=== PATIENT | male | born 1950 | race Caucasian/White ===

== ENCOUNTER 2017-03-08 10:14 | Inpatient (IN) | payer OTHER, MEDICAID ==
[~2017-03-08] VITALS: Ht 182.9 cm; Wt 92.7 kg
[~2017-03-08 10:14] MED LIST: ABIL400I IM; ALPH0.156 OS; ASPI1TAB PO; ATOR80TA59 PO; CALTTAB11 PO; CLEO150C PO; D 202000 PO; GLIP10TA6 PO; GLIP1TAB51 PO; ISOS30TA4 PO; LIDO1OIN2 TOP; LIDO5TD TD; LISI-542 PO; METF10004 PO; METO1TAB33 PO; RISATAB3 PO; TRAZO50TA PO; TYLE325C PO; XALA0.007 OU
[2017-03-08] MEDS ORDERED: VITA2000 PO (10:44)
[2017-03-08] MEDS ORDERED: HYDR1CRE2 EXT (10:44)
[2017-03-08] MEDS ORDERED: LISI10TA4 PO (10:44)
[2017-03-08] MEDS ORDERED: ALPHAGAN 0.1% OU (10:44)
[2017-03-08 11:41] LABS: MEAN CORPUSCULAR HEMOGLOBIN 31.6 pg (27.0-33.0); MEAN CORPUSCULAR HGB CONC 34.2 g/dl (32.0-36.5); MEAN CORPUSCULAR VOLUME 92.4 fl (80.0-96.0); RED CELL DISTRIBUTION WIDTH 13.7 % (11.5-14.5); WHITE BLOOD COUNT 11.9 K/mm3 (4.0-10.0)
[2017-03-08 12:00] LABS: METHADONE URINE NEGATIVE (NEGATIVE)
[2017-03-08 12:12] LABS: ALBUMIN 3.8 GM/DL (3.2-5.2); ALBUMIN/GLOBULIN RATIO 1.09 (1.00-1.93); ALKALINE PHOSPHATASE 105 U/L (45-117); ALT/SGPT 34 U/L (12-78); ANION GAP 6 MEQ/L (8-16); AST/SGOT 10 U/L (15-37); BILIRUBIN,DIRECT < 0.1 MG/DL (0.0-0.2); BILIRUBIN,TOTAL 0.3 MG/DL (0.2-1.0); BLOOD UREA NITROGEN 15 MG/DL (7-18); CARBON DIOXIDE LEVEL 26 MEQ/L (21-32); CHLORIDE LEVEL 109 MEQ/L (98-107); GLOMERULAR FILTRATION RATE > 60.0 (>49); GLUCOSE, FASTING 83 MG/DL (80-110); POTASSIUM SERUM 4.5 MEQ/L (3.5-5.1); SODIUM LEVEL 141 MEQ/L (136-145); TOTAL PROTEIN 7.3 GM/DL (6.4-8.2)
--- NOTE | 2017-03-08 14:00 | REP ---
Maxillofacial CT without IV contrast: There is preseptal soft tissue edema on the right compatible with cellulitis. There is no focal fluid collection to suggest abscess or hematoma. There is no intraorbital inflammation or edema. There is a left ocular band and there is intraocular silicone in the left ocular globe, likely treatment for retinal detachment. The paranasal sinuses are clear. There is nasal septal deviation to the right. The mastoid air cells are clear. The skull base and sella turcica are unremarkable. Impression: Preseptal soft tissue edema on the right, compatible with cellulitis . No intraorbital inflammation or edema. No focal fluid collection to suggest abscess or hematoma. Findings in the right ocular globe as described. Signed by Kee Mojica MD 03/08/2017 01:51 P
[2017-03-08] MEDS ORDERED: cefTRIAXone SOD 2 GM in D5W MINI-BAG PLUS 50 ML IV ONE (14:30)
[2017-03-08] MEDS ORDERED: ERYTHROMYCIN OPHTH OINT OD ONE (15:00)
[2017-03-08] MEDS ORDERED: PREDOPD OS (16:29)
[2017-03-08] MEDS ORDERED: KETO5OPD OS (16:29)
[2017-03-08] MEDS ORDERED: BRIM1OPD OS (16:29)
[2017-03-08] MEDS ORDERED: MOM 30ML SUSPENSION UDC PO PRN (18:00)
[2017-03-08] MEDS ORDERED: MAALOX 30 ML SUSP *UDC PO PRN (18:00)
[2017-03-08] MEDS ORDERED: LORazepam 1 MG TAB PO PRN (18:00)
[2017-03-08] MEDS ORDERED: traZODone 50 MG TAB PO PRN (18:00)
[2017-03-08] MEDS ORDERED: ACETAMINOPHEN TAB 650MG DOSE (2X325MG) PO PRN (18:00)
[2017-03-08 20:00] VITALS: BP 139/87
[2017-03-08] MEDS: ARIPiprazole 15 MG TAB (AbiLIFY) PO SCH (21:00)
--- NOTE | 2017-03-09 09:45 | HPEPDOC ---
Medical History and Physical Date of Admission Mar 08, 2017 at 17:59 History and Physical PCP: Chanda Horner NP ATTENDING: Dr. Josue Bolton HPI: 66yoM admitted to [facility] for schizoaffective disorder, being medically examined today. Patient is agitated with providing any history today, declines to answer many questions. Cannot provide any additional history regarding bilateral eye erythema. As per ED record was consulted in the emergency department. The patient received erythromycin ointment and IV Rocephin in the emergency department. History is taken from the chart. Denies any fevers, chills, weakness, fatigue, BEATTY, CP, SOB, cough, palpitations, abdominal pain, N/V/D or changes in bowel or bladder habits. PMHx: Hypertension NIDDM CAD/IWMI 1985. Referred for cardiac catheterization 08/01 patient refused at that time. COPD Glaucoma Hyperlipidemia Degenerative disc disease BPH Erectile dysfunction Eczema Tobacco use Anxiety Depression Legal blindness Macular degeneration PSHX: CABG 3 2000 cataract bilaterally Detached retina repair bilaterally SOCHX: Resides in: [facility] Marital Status: Single Employment: Disabled Tobacco use: Smoker ETOH: Denies Illicit Drugs: Denies IV Drug Use: Denies Tattoos done unprofessionally: Denies FAMHX: Mother: , CHF, breast cancer Father: , [place] Siblings: One brother Alive, well ROS: As noted in HPI, otherwise 11pt ROS of systems reviewed and unremarkable. PE: GEN: 66yoM, appears stated age. Well-nourished, well developed. No acute distress. Alert and oriented x 3. Becomes agitated with any history questions, tangential. HEENT: Normocephalic, atraumatic. B/L erythema surrounding eyes and extends periorbital B/L with yellowish drainage and edema noted. Nose midline. Nasal turbinates without bogginess. EACs both patent BL. TMs both visualized and trujillo with good cone of light, no bulging or erythema. No facial asymmetry. Moist mucous membranes. Pharynx pink and moist. Neck supple, trachea midline. No lymphadenopathy or thyromegaly appreciated. CHEST: Regular rate and rhythm, +S1, +S2 LUNGS: Clear to auscultation bilaterally. No wheezes, rales, or rhonchi. Breathing appears symmetric and easy. Patient is speaking in full sentences. No accessory muscle use. ABD: Round, soft, non-tender, non-distended. +Bowel sounds throughout. No rebound or guarding. No costovertebral angle tenderness. EXT: Pulses 2+ bilaterally dorsalis pedis and radial. No lower extremity edema appreciated. SKIN: [place], dry, warm. Capillary refill <2sec. scaling and erythema as noted on the fingers bilaterally. Patient states this is related to his eczema, chronic. NEURO: Alert and oriented x 3. Cranial nerves III-XII are intact. No focal deficits appreciated. EKG: pending. A&P: 66yoM admitted to [facility] for schizoaffective disorder 1. Psych. Plan per Psychiatry. Obtain baseline EKG to assure the safety of psychiatric medications as they can prolong the QT interval. 2. Nicotine dependence. Patch available. 3. HTN. Continue lisinopril with hold parameters. 4. NIDDM. Consistent carbohydrate diet. Hold metformin 1000 mg by mouth twice a day. Hold Glipizide. Blood sugar on admission noted to be 83. SSI. 5. HLD. Continue Lipitor 80 mg daily. 6. CAD/CABG. Patient with no chest discomfort reported at this time. Continue metoprolol 100 mg twice a day with hold parameters. Continue isosorbide mononitrate 30 mg daily. Continue aspirin 81 mg daily. 7. Legal Blindness. Supportive care. 8. B/L conjunctivitis/periorbital cellulitis. Patient received IV Rocephin 2 g 1 in ED 03/08/17. Ilotycin B/L eyes. Request CT maxillofacial to further asses. Update CBCd/CMP/ESR. Discussed with Dr Bolton, add po Omnicef 300mg BID x 10 days. 9. Eczema. Apply [place] 0.2% 3 times a day as needed. 10. Follow up with PCP on discharge. 11. Staff members Kerline RICHARDS and Angel present throughout exam. Vital Signs Vital Signs Date Time Temp Pulse Resp B/P (MAP) Pulse Ox O2 Delivery O2 Flow Rate FiO2 03/08/17 20:00 98.7 63 20 139/87 95 Room Air Laboratory Data Labs 24H Laboratory Tests 2 03/08/17 11:27: Anion Gap 6L, Glomerular Filtration Rate > 60.0, Calcium Level 9.0, Aspartate Amino Transf (AST/SGOT) 10L, Alanine Aminotransferase (ALT/SGPT) 34, Alkaline Phosphatase 105, Total Bilirubin 0.3, Direct Bilirubin < 0.1, Total Protein 7.3 , Albumin 3.8, Albumin/Globulin Ratio 1.09, Thyroid Stimulating Hormone (TSH) 1.780, Salicylates Level 2.6L, Urine Amphetamines Screen NEGATIVE, Urine Benzodiazepines Screen NEGATIVE, Urine Opiates Screen NEGATIVE, Urine Methadone Screen NEGATIVE, Acetaminophen Level < 2.0L, Urine Barbiturates Screen NEGATIVE , Urine Phencyclidine Screen NEGATIVE, Urine Cocaine Metabolite Screen NEGATIVE , Urine Cannabinoids Screen NEGATIVE, Ethyl Alcohol Level < 0.003 CBC/BMP Laboratory Tests 03/08/17 11:27 Red Blood Count 4.90, Mean Corpuscular Volume 92.4, Mean Corpuscular Hemoglobin 31.6, Mean Corpuscular Hemoglobin Concent 34.2, Red Cell Distribution Width 13.7 Home Medications Scheduled (Caltrate 600+D 600-800 mg-Unit) 1 Tab Tab, 1 TAB PO DAILY for Supplement Aspirin (Aspirin 81) 81 Mg Tab, 81 MG PO QHS for Heart Prophylaxis Atorvastatin Calcium (Atorvastatin Calcium) 80 Mg Tab, 80 MG PO QHS for High Cholesterol Brimonidine Tartrate 0.1% (Alphagan P) 100 Drop/5 Ml Soln, 1 DROP OS BID Cholecalciferol (Vitamin D3) 2,000 Unit Cap, 2,000 UNIT PO QHS Glipizide (Glipizide ER) 10 Mg Tab, 10 MG PO QHS for DIABETES Isosorbide Mononitrate (Isosorbide Mononitrate ER) 30 Mg Tab, 30 MG PO QHS for vasodilator Ketorolac Tromethamine (Ketorolac Tromethamine) 0.5 % Sudha, 1 DROP OS QID Lisinopril (Lisinopril) 10 Mg Tab, 10 MG PO QHS Metformin Hydrochloride (Metformin HCl) 1,000 Mg Tab, 1,000 MG PO BID for Diabetes Metoprolol Succinate (Metoprolol Succinate ER) 100 Mg Tab, 100 MG PO BID Prednisolone Acetate (Prednisolone Acetate 1% Opth Susp) 100 Drop/5 Ml Susp, 1 DROP OS QID Allergies Coded Allergies: Fluphenazine (Verified Allergy, Unknown, 05/20/16) Haloperidol (Unverified Allergy, Unknown, 05/20/16) Gladys Membreno Mar 09, 2017 09:45
[2017-03-09] MEDS ORDERED: GLUCOSE 4 GM CHEW TABLET PO PRN (10:30)
[2017-03-09] MEDS ORDERED: GLUCAGON FOR INJ 1 MG VIAL (J1610) SC PRN (10:30)
[2017-03-09] MEDS ORDERED: DEXTROSE 50% 50 ML SYRINGE IV PRN (10:30)
[2017-03-09] MEDS ORDERED: ISOVUE-370 76% 100ML VIAL (Q9967) As Ordered ONE (10:46)
[2017-03-09 10:59] LABS: BASO # 0.1 K/mm3 (0.0-0.2); BASO % 0.8 % (0.0-1.0); EOS # 0.3 K/mm3 (0.0-0.50); EOS % 3.5 % (0.0-3.0); LARGE UNSTAINED CELL # 0.1 K/mm3 (0.0-0.4); LARGE UNSTAINED CELL % 0.9 % (0.0-4.0); LYMPH # 1.2 K/mm3 (1.5-4.5); MEAN CORPUSCULAR HEMOGLOBIN 31.6 pg (27.0-33.0); MEAN CORPUSCULAR HGB CONC 33.7 g/dl (32.0-36.5); MEAN CORPUSCULAR VOLUME 93.9 fl (80.0-96.0); MONO # 0.5 K/mm3 (0.0-0.8); MONO % 5.7 % (0.0-5.0); NEUTROPHILS # 7.1 K/mm3 (1.8-7.7); PLATELET COUNT, AUTOMATED 147 k/mm3 (150-450); RED CELL DISTRIBUTION WIDTH 13.5 % (11.5-14.5); WHITE BLOOD COUNT 9.3 K/mm3 (4.0-10.0)
[2017-03-09 11:23] LABS: ALBUMIN 3.5 GM/DL (3.2-5.2); ALBUMIN/GLOBULIN RATIO 0.95 (1.00-1.93); ALKALINE PHOSPHATASE 102 U/L (45-117); ALT/SGPT 32 U/L (12-78); ANION GAP 5 MEQ/L (8-16); AST/SGOT 11 U/L (15-37); BILIRUBIN,TOTAL 0.4 MG/DL (0.2-1.0); BLOOD UREA NITROGEN 15 MG/DL (7-18); CARBON DIOXIDE LEVEL 31 MEQ/L (21-32); CHLORIDE LEVEL 105 MEQ/L (98-107); CREATININE FOR GFR 0.94 MG/DL (0.70-1.30); GLOMERULAR FILTRATION RATE > 60.0 (>49); GLUCOSE, FASTING 113 MG/DL (80-110); POTASSIUM SERUM 4.5 MEQ/L (3.5-5.1); SODIUM LEVEL 141 MEQ/L (136-145); TOTAL PROTEIN 7.2 GM/DL (6.4-8.2)
[2017-03-09] MEDS: HumaLOG INSULIN (NovoLOG) PER UNIT SC SCH ×3 (11:33→20:14)
[2017-03-09] MEDS: METOPROLOL SUCC (TopROL XL) 100MG *XL* TAB PO SCH ×2 (11:34→20:11)
--- NOTE | 2017-03-09 11:43 | REP ---
MAXILLOFACIAL CT WITH CONTRAST: HISTORY: Cellulitis. CONTRAST: Isovue 370, 75 mL. COMPARISON: 03/08/2017. Minimal mucosal thickening is present in the ethmoid, maxillary, sphenoid and frontal sinuses. Mucosal thickening involves the ostiomeatal units. The middle and inferior nasal turbinates are partially paradoxical. There is yunier bullosa of the left middle nasal turbinate. There is mild deviation of the nasal septum to the right. A spur is present arising from the right side of the nasal septum. The spur abuts the right middle and inferior nasal turbinates. The cribriform plate, medial bautista of the orbits and optic canals are intact. The carotid canals form a segment of the posterolateral bautista of the sphenoid sinus. The right sphenoid sinus septum inserts into the right internal carotid canal wall. The patient is status post left retinal banding. Intraocular silicone is present in the left globe. Right preseptal soft tissue swelling is present. IMPRESSION: 1. Sinus mucosal thickening as described above. 2. Right preseptal soft tissue swelling unchanged compared to the previous study. Signed by Zay Ashley MD 03/09/2017 11:45 A
[2017-03-09 13:18] LABS: ERYTHROCYTE SEDIMENTATION RATE 7 mm/hr (0-20)
[2017-03-09] MEDS: CEFDINIR 300 MG CAP (OMNICEF) PO SCH ×2 (15:00→20:11)
[2017-03-09] MEDS: BRIMONIDINE 0.1% OPHTH SOLN 5 ML OS SCH ×2 (15:01→20:14)
[2017-03-09] MEDS: KETOROLAC 0.5% OPHTH SOLN OS SCH ×3 (16:11→20:14)
--- NOTE | 2017-03-09 16:20 | MHHPE ---
DATE OF ADMISSION: 03/08/2017 CURRENT PSYCHIATRIC MEDICATIONS: None. CHIEF COMPLAINT: Depressed and feeling miserable. HISTORY OF PRESENT ILLNESS: This is a 66-year-old white male living by himself, presenting to the emergency room feeling depressed with passive suicidal ideation for the past 2 weeks. Precipitating stressors include a severe case of bedbugs in his apartment. He also has health issues regarding blindness. He can no longer drive. He has trouble taking care of himself. He cannot watch television. 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 He is completely blind in his right eye and mostly blind in his left eye. Currently, his appetite is good. He does have problems sleeping at night, he tosses and turns all night. Concentration is fair. Level of energy is good. He has had suicidal ideation as mentioned above. The patient had been seen by me back in May of 2016 with a diagnosis of schizoaffective disorder. He was placed on Abilify with good effects which apparently was discontinued at some point. He is in no current psychiatric treatment. At the time of admission last May, the patient was psychotic. The patient denies any recent psychotic symptoms. PAST PSYCHIATRIC HISTORY: Patient was hospitalized as mentioned above back in May. He had a good response to oral Abilify which was then transitioned to the Abilify Maintena monthly injection due to concerns about medication compliance. It was discontinued for some reason in the interim. He has had other hospitalizations over the years. The patient is not a good historian. According to our records, he was diagnosed with schizoaffective disorder and hospitalized back in 1998. He was placed on Risperdal and Zoloft at the time. He had a similar episode back in 2000 as well. MEDICAL HISTORY: The patient has a history of hypertension, diabetes mellitus, coronary artery disease. He is legally blind. He has periorbital cellulitis. He has been treated for a detached retina in both eyes. ALLERGIES: HALDOL and PROLIXIN, apparent dystonic reactions. LEGAL HISTORY: Patient denies. CHEMICAL DEPENDENCY: None noted. SOCIAL HISTORY: Patient born and raised in the [place], [place] area. Both parents are . He has one brother who is still living, relationship with him is poor. Patient is a high school graduate, he has one year of college. The patient is disabled due to his mental illness. He has been but is . He has no children by that union. Social support system is minimal. He is considering going into [facility] ([facility]). FAMILY PSYCHIATRIC HISTORY: Patient denies. MENTAL STATUS EXAMINATION: The patient does have swelling about both periorbital areas, especially on his right. The patient is legally blind but is able to navigate the floors and walk without bumping into items. Affect is sad. Mood is moderately depressed with recent suicidal ideation. He denies any psychotic symptoms. He is not hearing voices. No paranoia or thought disorder. Insight and judgment are fair. No signs of impulsivity. Memory functions appear intact. ASSESSMENT: The patient appears to have primarily depressive symptoms of late but will need to be monitored for any signs of psychosis. The patient did well on Abilify last visit. He has never been on Seroquel which would have decreased risk of dystonic reactions. DIANOSIS: Schizoaffective,depressed PLAN: 9.39 confirmed. Continue Abilify 15 mg nightly. Add Seroquel 50 mg nightly for sleep. Staff to work on housing issues. [facility]
[2017-03-09] MEDS ORDERED: HYDROCORTISONE 1% CREAM 30 GM TOP ONE (17:30)
[2017-03-09 18:00] VITALS: BP 144/74
[2017-03-09] MEDS ORDERED: metFORMIN (GLUCOPHAGE) 1000 MG TABLET PO SCH (18:00)
--- NOTE | 2017-03-09 19:13 | ECGEPIP ---
Stationary ECG Study [facility] Test Date: 2017-03-09 Pat Name: RIC ORTIZ Department: Room: [place] [address] Gender: M Hvac Engineering Technician: CIERA : 1950 Requested By: Gladys Membreno Order Number: [id number] Reading MD: aCm Arellano Measurements Intervals [place] Rate: 61 P: 55 NE: 202 QRS: 38 QRSD: 151 T: -6 QT: 475 QTc: 480 Interpretive Statements Normal sinus rhythm. LA conduction disturbance. First-degree AV block. Left bundle branch block No significant change from 05/20/16 Electronically Signed On 03-09-2017 19:12:44 EDT by Cam Arellano
[2017-03-09] MEDS: LISINOPRIL 10 MG TAB PO SCH (20:10)
[2017-03-09] MEDS: ISOSORBIDE MON. (IMDUR) 30 MG XR TAB PO SCH (20:10)
[2017-03-09] MEDS: ATORVASTATIN 20 MG TAB PO SCH (20:11)
[2017-03-09] MEDS: ASPIRIN 81 MG ENTERIC TAB PO SCH (20:11)
[2017-03-09] MEDS: VITAMIN D 1,000 INTERNATIONAL UNITS TABLET PO SCH (20:11)
[2017-03-09] MEDS: ARIPiprazole 15 MG TAB (AbiLIFY) PO SCH (20:14)
[2017-03-09] MEDS: HYDROCORTISONE 1% CREAM 30 GM TOP SCH (20:15)
[2017-03-10] MEDS: HumaLOG INSULIN (NovoLOG) PER UNIT SC SCH ×4 (06:18→21:00)
[2017-03-10 06:23] VITALS: BP 95/52
[2017-03-10] MEDS: KETOROLAC 0.5% OPHTH SOLN OS SCH ×4 (08:27→21:26)
[2017-03-10] MEDS: BRIMONIDINE 0.1% OPHTH SOLN 5 ML OS SCH ×2 (08:27→21:26)
[2017-03-10] MEDS: CEFDINIR 300 MG CAP (OMNICEF) PO SCH ×2 (08:28→21:25)
[2017-03-10] MEDS: HYDROCORTISONE 1% CREAM 30 GM TOP SCH ×3 (08:28→21:26)
[2017-03-10] MEDS: METOPROLOL SUCC (TopROL XL) 100MG *XL* TAB PO SCH ×2 (08:30→21:27)
--- NOTE | 2017-03-10 09:34 | IPNPDOC ---
Date Seen The patient was seen on 03/10/17. Progress Note HPI: 66yoM admitted to [facility] for schizoaffective disorder, seen today to F/U periorbital cellulitis. Pt states he is feeling better today. Feels less eye irritation and itching. Denies any fevers, chills, weakness, fatigue, BEATTY, CP, SOB, cough, palpitations, abdominal pain, N/V/D or changes in bowel or bladder habits. PMHx: Hypertension NIDDM CAD/IWMI 1985. Referred for cardiac catheterization 08/01 patient refused at that time. COPD Glaucoma Hyperlipidemia Degenerative disc disease BPH Erectile dysfunction Eczema Tobacco use Anxiety Depression Legal blindness H/O retinal detachment. Follows with [facility]. PSHX: CABG 3 2000 cataract bilaterally Detached retina repair bilaterally PE: GEN: 66yoM, appears stated age. Well-nourished, well developed. No acute distress. Alert and oriented x 3. HEENT: Normocephalic, atraumatic. Pt is legally blind. B/L erythema surrounding eyes appears improved. Periorbital edema appears improved. Yellowish drainage and crusting noted. Nose midline. No facial asymmetry. Moist mucous membranes. Pharynx pink and moist. Neck supple, trachea midline. No lymphadenopathy or thyromegaly appreciated. CHEST: Regular rate and rhythm, +S1, +S2 LUNGS: Clear to auscultation bilaterally. No wheezes, rales, or rhonchi. Breathing appears symmetric and easy. Patient is speaking in full sentences. No accessory muscle use. ABD: Round, soft, non-tender, non-distended. +Bowel sounds throughout. No rebound or guarding. No costovertebral angle tenderness. EXT: Pulses 2+ bilaterally dorsalis pedis and radial. No lower extremity edema appreciated. SKIN: [place], dry, warm. Capillary refill <2sec. scaling and erythema as noted on the fingers bilaterally. Patient states this is related to his eczema, chronic. NEURO: Alert and oriented x 3. Cranial nerves III-XII are intact. No focal deficits appreciated. EK03/09/17 Normal sinus rhythm. LA conduction disturbance. First-degree AV block. Left bundle branch block No significant change from 05/20/16 CT Maxillofacial 03/09/17 Sinus mucosal thickening as described above. Right preseptal soft tissue swelling unchanged compared to the previous study. A&P: 66yoM admitted to [facility] for schizoaffective disorder 1. Psych. Plan per Psychiatry.EKG on file. 2. Nicotine dependence. Patch available. 3. HTN. Continue lisinopril with hold parameters. 4. NIDDM. Consistent carbohydrate diet. Hold metformin 1000 mg by mouth twice a day. Hold Glipizide. Blood sugar on admission noted to be 83. SSI. 5. HLD. Continue Lipitor 80 mg daily. 6. CAD/CABG. Patient with no chest discomfort reported at this time. Continue metoprolol 100 mg twice a day with hold parameters. Continue isosorbide mononitrate 30 mg daily. Continue aspirin 81 mg daily. 7. Legal Blindness. Supportive care. 8. B/L conjunctivitis/periorbital cellulitis. Patient received IV Rocephin 2 g 1 in ED 03/08/17. CT maxillofacial completed. ESR 7. PO Omnicef 300mg BID D2/ 10. Appears to be improving. Monitor. 9. Eczema. Apply triamcinolone as needed. 10. Follow up with PCP on discharge. VS, I&O, 24H, [facility] Vital Signs/I&O Vital Signs Date Time Temp Pulse Resp B/P (MAP) Pulse Ox O2 Delivery O2 Flow Rate FiO2 03/10/17 08:30 57 123/66 03/10/17 06:23 98.0 18 03/08/17 20:00 95 Room Air Laboratory Data 24H LABS Laboratory Tests 2 03/09/17 10:46: White Blood Count 9.3, Red Blood Count 4.77, Hemoglobin 15.1, Hematocrit 44.8, Mean Corpuscular Volume 93.9, Mean Corpuscular Hemoglobin 31.6, Mean Corpuscular Hemoglobin Concent 33.7, Red Cell Distribution Width 13.5, Platelet Count 147L, Neutrophils (%) (Auto) 77.0H, Lymphocytes (%) (Auto) 12.0L, Monocytes (%) (Auto) 5.7H, Eosinophils (%) (Auto) 3.5H, Basophils (%) (Auto) 0.8 , Neutrophils # (Auto) 7.1, Lymphocytes # (Auto) 1.2L, Monocytes # (Auto) 0.5, Eosinophils # (Auto) 0.3, Basophils # (Auto) 0.1, Large Unclassified Cells % 0.9 , Large Unclassified Cells # 0.1, Erythrocyte Sedimentation Rate 7, Anion Gap 5L , Glomerular Filtration Rate > 60.0, Blood Urea Nitrogen 15, Creatinine 0.94, Sodium Level 141, Potassium Level 4.5, Chloride Level 105, Carbon Dioxide Level 31, Calcium Level 9.0, Aspartate Amino Transf (AST/SGOT) 11L, Alanine Aminotransferase (ALT/SGPT) 32, Alkaline Phosphatase 102, Total Bilirubin 0.4, Total Protein 7.2, Albumin 3.5, Albumin/Globulin Ratio 0.95L 03/09/17 11:30: Bedside Glucose (Misc Panel) 111 03/09/17 17:15: Bedside Glucose (Misc Panel) 135H 03/09/17 20:05: Bedside Glucose (Misc Panel) 196H 03/10/17 06:17: Bedside Glucose (Misc Panel) 97 CBC/BMP Laboratory Tests 03/09/17 10:46 Red Blood Count 4.77, Mean Corpuscular Volume 93.9, Mean Corpuscular Hemoglobin 31.6, Mean Corpuscular Hemoglobin Concent 33.7, Red Cell Distribution Width 13.5 , Neutrophils (%) (Auto) 77.0 H, Lymphocytes (%) (Auto) 12.0 L, Monocytes (%) ( Auto) 5.7 H, Eosinophils (%) (Auto) 3.5 H, Basophils (%) (Auto) 0.8, Neutrophils # (Auto) 7.1, Lymphocytes # (Auto) 1.2 L, Monocytes # (Auto) 0.5, Eosinophils # (Auto) 0.3, Basophils # (Auto) 0.1, Calcium Level 9.0, Aspartate Amino Transf (AST/SGOT) 11 L, Alanine Aminotransferase (ALT/SGPT) 32, Alkaline Phosphatase 102, Total Bilirubin 0.4, Total Protein 7.2, Albumin 3.5 Gladys Membreno Mar 10, 2017 09:34
[2017-03-10] MEDS ORDERED: TRIAMCINOLONE ACETONIDE 0.025 % 80 GM CREAM TOP PRN (09:45)
[2017-03-10 18:00] VITALS: BP 117/67
[2017-03-10] MEDS: ATORVASTATIN 20 MG TAB PO SCH (21:25)
[2017-03-10] MEDS: VITAMIN D 1,000 INTERNATIONAL UNITS TABLET PO SCH (21:25)
[2017-03-10] MEDS: QUEtiapine FUMARATE 100 MG TAB PO SCH (21:25)
[2017-03-10] MEDS: ASPIRIN 81 MG ENTERIC TAB PO SCH (21:25)
[2017-03-10] MEDS: ISOSORBIDE MON. (IMDUR) 30 MG XR TAB PO SCH (21:27)
[2017-03-10] MEDS: LISINOPRIL 10 MG TAB PO SCH (21:28)
[2017-03-11] MEDS: HumaLOG INSULIN (NovoLOG) PER UNIT SC SCH ×4 (07:30→21:00)
[2017-03-11] MEDS: METOPROLOL SUCC (TopROL XL) 100MG *XL* TAB PO SCH ×2 (09:27→22:03)
[2017-03-11] MEDS: CEFDINIR 300 MG CAP (OMNICEF) PO SCH ×2 (09:28→22:03)
[2017-03-11] MEDS: HYDROCORTISONE 1% CREAM 30 GM TOP SCH ×3 (09:28→21:00)
[2017-03-11] MEDS: KETOROLAC 0.5% OPHTH SOLN OS SCH ×4 (09:28→22:04)
[2017-03-11] MEDS: BRIMONIDINE 0.1% OPHTH SOLN 5 ML OS SCH ×2 (09:28→22:04)
--- NOTE | 2017-03-11 09:49 | IPN ---
DATE: 03/10/2017 VITAL SIGNS: Temperature 98.0, pulse 54, respirations 18, blood pressure 95/52. CURRENT MEDICATIONS: - Abilify 15 mg at bedtime - trazodone 50 mg at bedtime as needed HISTORY OF PRESENT ILLNESS: The patient refuses to take the Abilify which had been ordered. He claims it gives him neck pain, describing possibly dystonic reactions which he has had on other psychotropics. He would like to go on the Seroquel, which appears reasonable. He continues to ventilate regarding his poor eye sight and how this has interfered with his quality of life. He is unhappy with his housing, especially with the bed bugs. He hopes to get into [facility] ([facility]). No recent signs of psychosis. He denies any manic symptoms. No signs of racing thoughts. The patient reports a depressed mood. The patient had been psychotic at time of his last admission, but shows no signs of such of late. MENTAL STATUS EXAMINATION: The patient is alert, oriented and cooperative. The patient is moderately anxious, moderately depressed. He is not manic. He is not suicidal. He is not hearing voices. No paranoia or thought disorder. No current signs of dangerousness. Insight and judgment are fair. Memory functions appear intact. The patient is visually impaired. DIAGNOSIS: Schizoaffective disorder, depressed. PLAN: Abilify discontinued. Start trial of Seroquel.
[2017-03-11 18:00] VITALS: BP 110/55
[2017-03-11] MEDS: ISOSORBIDE MON. (IMDUR) 30 MG XR TAB PO SCH (21:00)
[2017-03-11] MEDS: ASPIRIN 81 MG ENTERIC TAB PO SCH (22:02)
[2017-03-11] MEDS: ATORVASTATIN 20 MG TAB PO SCH (22:03)
[2017-03-11] MEDS: QUEtiapine FUMARATE 100 MG TAB PO SCH (22:07)
[2017-03-11] MEDS: VITAMIN D 1,000 INTERNATIONAL UNITS TABLET PO SCH (22:07)
[2017-03-11] MEDS: LISINOPRIL 10 MG TAB PO SCH (22:07)
[2017-03-12] MEDS: HumaLOG INSULIN (NovoLOG) PER UNIT SC SCH ×4 (06:25→20:39)
[2017-03-12] MEDS: HYDROCORTISONE 1% CREAM 30 GM TOP SCH ×3 (09:00→20:39)
[2017-03-12] MEDS: KETOROLAC 0.5% OPHTH SOLN OS SCH ×5 (09:00→20:33)
[2017-03-12] MEDS: BRIMONIDINE 0.1% OPHTH SOLN 5 ML OS SCH ×2 (11:34→20:33)
[2017-03-12] MEDS: CEFDINIR 300 MG CAP (OMNICEF) PO SCH ×2 (11:35→20:35)
[2017-03-12] MEDS: ISOSORBIDE MON. (IMDUR) 30 MG XR TAB PO SCH ×2 (11:35→20:34)
[2017-03-12] MEDS: METOPROLOL SUCC (TopROL XL) 100MG *XL* TAB PO SCH ×2 (11:38→20:35)
[2017-03-12 18:00] VITALS: BP 136/70
[2017-03-12] MEDS: VITAMIN D 1,000 INTERNATIONAL UNITS TABLET PO SCH (20:34)
[2017-03-12] MEDS: LISINOPRIL 10 MG TAB PO SCH (20:34)
[2017-03-12] MEDS: ASPIRIN 81 MG ENTERIC TAB PO SCH (20:34)
[2017-03-12] MEDS: ATORVASTATIN 20 MG TAB PO SCH (20:35)
[2017-03-12] MEDS: QUEtiapine FUMARATE 100 MG TAB PO SCH (20:35)
--- NOTE | 2017-03-12 23:12 | IPN ---
DATE OF SERVICE: 03/11/2017 CHIEF COMPLAINT: Feels stressed. SUBJECTIVE: Seen for followup. Indicates has been stressed, matters related to vision, as well as bed bugs at his previous residence. MENTAL STATUS EXAMINATION: He is cooperative, mildly anxious. He is coherent. Denies any suicidal thoughts or intents. Denies any hallucinations either. Does not appear to be internally preoccupied. Judgment, insight fair at best. ASSESSMENT: Schizoaffective disorder. PLAN: Continue current care, had just been started on Seroquel by Dr. Obando.
[2017-03-13] MEDS: HumaLOG INSULIN (NovoLOG) PER UNIT SC SCH ×4 (07:30→21:00)
--- NOTE | 2017-03-13 08:52 | IPN ---
DATE: 03/12/2017 CHIEF COMPLAINT: Says feels a bit tired. SUBJECTIVE: Seen for followup. Says he slept okay, and was trying to go to sleep when I saw him, at least had his cover over him. He says he felt that he did not get what he had requested for breakfast, but has eaten half of it. MENTAL STATUS EXAMINATION: He is lying in bed, with the cover pulled over his face, but he is cooperative. He answers questions logically, coherently. I could not ascertain his affect, however, he denied any thoughts of harming himself. Judgment and insight fair. ASSESSMENT: Schizoaffective disorder. PLAN: Continue current care and observations. Encourage participation in activities on the unit as tolerated.
[2017-03-13] MEDS: BRIMONIDINE 0.1% OPHTH SOLN 5 ML OS SCH ×2 (09:34→21:57)
[2017-03-13] MEDS: KETOROLAC 0.5% OPHTH SOLN OS SCH ×4 (09:34→21:57)
[2017-03-13] MEDS: CEFDINIR 300 MG CAP (OMNICEF) PO SCH ×2 (09:34→21:59)
[2017-03-13] MEDS: HYDROCORTISONE 1% CREAM 30 GM TOP SCH ×3 (09:36→21:57)
[2017-03-13] MEDS: METOPROLOL SUCC (TopROL XL) 100MG *XL* TAB PO SCH ×2 (09:49→21:58)
[2017-03-13 18:20] VITALS: BP 134/75
[2017-03-13] MEDS ORDERED: QUEtiapine FUMARATE 50 MG TAB PO SCH (21:00)
--- NOTE | 2017-03-13 21:40 | IPN ---
DATE: 03/13/2017 VITAL SIGNS: Temperature not taken, pulse 78, respirations not taken, blood pressure 124/62. CURRENT MEDICATIONS: - Seroquel 100 mg nightly HISTORY OF PRESENT ILLNESS: His appetite is good. His sleep is better since he has been on the Seroquel, he is tolerating it well, he has no dystonic reactions. He is not attending groups. He is still focused on going into [facility] ([facility]) for housing for more support given his visual impairment. MENTAL STATUS EXAMINATION: Patient is alert and oriented. He is cooperative. The patient is still anxious and moderately depressed. He denies suicidal thoughts. He is worried about his housing and grieving over the loss of his eyesight and the loss of his independence. He is encouraged to go to group therapy to help process this. He is not hearing voices. No signs of paranoia or thought disorder. No manic symptoms. No current signs of dangerousness. Insight and judgment are fair. Grooming and hygiene are fair. DIAGNOSIS: Schizoaffective disorder, depressed. PLAN: Increase Seroquel. Encourage involvement in hospital milieu.
[2017-03-13] MEDS: VITAMIN D 1,000 INTERNATIONAL UNITS TABLET PO SCH (21:57)
[2017-03-13] MEDS: LISINOPRIL 10 MG TAB PO SCH (21:58)
[2017-03-13] MEDS: ISOSORBIDE MON. (IMDUR) 30 MG XR TAB PO SCH (21:58)
[2017-03-13] MEDS: ASPIRIN 81 MG ENTERIC TAB PO SCH (21:59)
[2017-03-13] MEDS: ATORVASTATIN 20 MG TAB PO SCH (21:59)
[2017-03-14 06:22] VITALS: BP 117/67
[2017-03-14] MEDS: HumaLOG INSULIN (NovoLOG) PER UNIT SC SCH ×4 (06:32→21:00)
[2017-03-14] MEDS: BRIMONIDINE 0.1% OPHTH SOLN 5 ML OS SCH ×2 (08:38→21:40)
[2017-03-14] MEDS: KETOROLAC 0.5% OPHTH SOLN OS SCH ×4 (08:38→21:40)
[2017-03-14] MEDS: CEFDINIR 300 MG CAP (OMNICEF) PO SCH ×2 (08:38→21:42)
[2017-03-14] MEDS: HYDROCORTISONE 1% CREAM 30 GM TOP SCH ×3 (08:39→21:40)
[2017-03-14] MEDS: METOPROLOL SUCC (TopROL XL) 100MG *XL* TAB PO SCH ×2 (08:41→21:42)
[2017-03-14] MEDS: ERYTHROMYCIN OPHTH OINT OU SCH ×3 (10:11→21:40)
--- NOTE | 2017-03-14 10:37 | IPNPDOC ---
Date Seen The patient was seen on 03/14/17. Progress Note HPI: 66yoM admitted to [facility] for schizoaffective disorder, seen today to F/U periorbital cellulitis. Pt becomes agitated with questions. Tangential. Still with some eye irritation, much less erythema periorbital area. Denies any fevers, chills, weakness, fatigue, BEATTY, CP, SOB, cough, palpitations, abdominal pain, N/V/D or changes in bowel or bladder habits. PMHx: Hypertension NIDDM CAD/IWMI 1985. Referred for cardiac catheterization 08/01 patient refused at that time. COPD Glaucoma Hyperlipidemia Degenerative disc disease BPH Erectile dysfunction Eczema Tobacco use Anxiety Depression Legal blindness H/O retinal detachment. Follows with [facility]. PSHX: CABG 3 2000 cataract bilaterally Detached retina repair bilaterally PE: GEN: 66yoM, appears stated age. No acute distress. Alert and oriented x 3. Agitated with exam, tangential speech. HEENT: Normocephalic, atraumatic. Pt is legally blind. B/L erythema surrounding eyes appears much improved. Periorbital edema appears resolved. Yellowish drainage and crusting noted Rt. Nose midline. No facial asymmetry. Moist mucous membranes. Pharynx pink and moist. Neck supple, trachea midline. CHEST: Regular rate and rhythm, +S1, +S2 LUNGS: Clear to auscultation bilaterally. No wheezes, rales, or rhonchi. Breathing appears symmetric and easy. Patient is speaking in full sentences. No accessory muscle use. ABD: Round, soft, non-tender, non-distended. +Bowel sounds throughout. No rebound or guarding. No costovertebral angle tenderness. EXT: Pulses 2+ bilaterally dorsalis pedis and radial. No lower extremity edema appreciated. SKIN: [place], dry, warm. scaling and erythema as noted on the fingers bilaterally. Patient states this is related to his eczema, chronic. NEURO: No focal deficits appreciated. CT Maxillofacial 03/09/17 Sinus mucosal thickening as described above. Right preseptal soft tissue swelling unchanged compared to the previous study. A&P: 66yoM admitted to [facility] for schizoaffective disorder 1. Psych. Plan per Psychiatry.EKG on file. 2. Nicotine dependence. Patch available. 3. HTN. Continue lisinopril with hold parameters. BP controlled. 4. NIDDM. Consistent carbohydrate diet. Hold metformin 1000 mg by mouth twice a day. Hold Glipizide. Blood sugar on admission noted to be 83. SSI. 5. HLD. Continue Lipitor 80 mg daily. 6. CAD/CABG. Patient with no chest discomfort reported at this time. Continue metoprolol 100 mg twice a day with hold parameters. Continue isosorbide mononitrate 30 mg daily. Continue aspirin 81 mg daily. 7. Legal Blindness. Supportive care. 8. B/L conjunctivitis/periorbital cellulitis. Patient received IV Rocephin 2 g 1 in ED 03/08/17. CT maxillofacial completed. ESR 7. PO Omnicef 300mg BID D5/ 10. Will add erythromycin ointment as well. Appears to be improving. Monitor. Plan for outpt F/O with his biomathematician at [place]. 9. Eczema. Apply triamcinolone as needed. 10. Follow up with PCP on discharge. VS, I&O, 24H, Fishbone Vital Signs/I&O Vital Signs Date Time Temp Pulse Resp B/P (MAP) Pulse Ox O2 Delivery O2 Flow Rate FiO2 03/14/17 08:41 57 111/69 03/14/17 06:22 98.9 20 03/08/17 20:00 95 Room Air Laboratory Data 24H LABS Laboratory Tests 2 03/13/17 17:09: Bedside Glucose (Misc Panel) 117H 03/13/17 21:52: Bedside Glucose (Misc Panel) 149H 03/14/17 06:30: Bedside Glucose (Misc Panel) 111 Gladys Membreno Mar 14, 2017 10:37
[2017-03-14] MEDS ORDERED: diphenhydrAMINE 50 MG CAP PO PRN (17:45)
[2017-03-14] MEDS ORDERED: NORTRIPTYLINE 10 MG CAP PO PRN (17:45)
[2017-03-14 18:12] VITALS: BP 117/60
--- NOTE | 2017-03-14 18:14 | IPN ---
DATE: 03/14/2017 VITAL SIGNS: Temperature 98.9, pulse 50, respirations 20, blood pressure 117/67. CURRENT MEDICATIONS: - Seroquel 150 mg nightly HISTORY OF THE PRESENT ILLNESS: The patient likes the Seroquel. He tolerated the higher dosage well last night. He slept better. He feels more hopeful about the future. His depression is lifting. He feels comfortable returning to his own apartment briefly with [facility] ([facility]) followup. He hopes to go into a respite program. He feels more "peaceful" since being on the Seroquel. He has had no dystonic reactions on it, unlike other psychotropics. He feels grateful for the treatment he has received here. As he is blind, he does not feel comfortable socializing with younger patients in the day room or to attend group therapy programs. MENTAL STATUS EXAMINATION: The patient is alert and oriented. He is less anxious. Mood improved, less depressed. Not currently suicidal. Less anxious and worried, more hopeful about the future. He is not hearing voices. No paranoia noted. No signs of zurdo or psychosis. Grooming and hygiene are fair. DIAGNOSIS: Schizoaffective disorder. PLAN: Increase Seroquel up to 200 mg nightly. Staff to work on discharge planning.
[2017-03-14] MEDS ORDERED: QUEtiapine FUMARATE 100 MG TAB PO SCH (21:00)
[2017-03-14] MEDS: VITAMIN D 1,000 INTERNATIONAL UNITS TABLET PO SCH (21:40)
[2017-03-14] MEDS: ATORVASTATIN 20 MG TAB PO SCH (21:41)
[2017-03-14] MEDS: ISOSORBIDE MON. (IMDUR) 30 MG XR TAB PO SCH (21:41)
[2017-03-14] MEDS: LISINOPRIL 10 MG TAB PO SCH (21:42)
[2017-03-14] MEDS: ASPIRIN 81 MG ENTERIC TAB PO SCH (21:42)
[2017-03-15] MEDS: HumaLOG INSULIN (NovoLOG) PER UNIT SC SCH (06:13)
[2017-03-15 06:40] VITALS: BP 119/69
[2017-03-15 09:00] VITALS: BP 103/57
[2017-03-15] MEDS: HYDROCORTISONE 1% CREAM 30 GM TOP SCH (09:00)
[2017-03-15] MEDS: METOPROLOL SUCC (TopROL XL) 100MG *XL* TAB PO SCH (09:00)
[2017-03-15] MEDS: CEFDINIR 300 MG CAP (OMNICEF) PO SCH (10:06)
[2017-03-15] MEDS: KETOROLAC 0.5% OPHTH SOLN OS SCH (10:06)
[2017-03-15] MEDS: BRIMONIDINE 0.1% OPHTH SOLN 5 ML OS SCH (10:07)
[2017-03-15] MEDS: ERYTHROMYCIN OPHTH OINT OU SCH (10:08)
[2017-03-15] MEDS ORDERED: SERO200T PO (11:02)
--- NOTE | 2017-03-16 21:02 | MHDS ---
DATE OF ADMISSION: 03/08/2017 DATE OF DISCHARGE: 03/15/2017 VITAL SIGNS: Temperature 97.3, pulse 57, respirations 16, blood pressure 119/69. LABORATORY DATA: CBC and differential within normal limits. Chemistry survey within normal limits except for fasting glucose of 113. AST was low at 10 and 11. Toxicology negative. EKG showed normal sinus rhythm. There was first-degree atrioventricular (AV) block and left bundle branch block with no change since April 2016. QTC interval was 480, within normal limits. MEDICATION UPON DISCHARGE: Seroquel 200 mg at bedtime DISCHARGE DIAGNOSIS: Schizoaffective disorder, depressed. CHIEF COMPLAINT: Depression. HISTORY OF PRESENT ILLNESS: This is a 66-year-old white male living by himself, who presented to the emergency room feeling miserable with "some passive suicidal ideation for 2 weeks." The major precipitating stressor was a severe case of bed bugs in his apartment. He is also grieving his health issues. He is blind in his left eye. He is almost completely blind in his right eye. He can no longer drive. He is not able to read. He has trouble taking care of himself. His appetite has been good recently, but he does have insomnia. He tosses and turns all night. His concentration is fair. He has had suicidal ideation on a daily basis. PROGRESS ON THE UNIT: Patient was placed back on Abilify, which had been prescribed back in May 2016 during his last hospitalization. The patient, however, refused to take it, claiming that he had a dystonic reaction on it as an outpatient. He was then switched to Seroquel 100 mg at bedtime. He had never been on this pharmaceutical before. He tolerated it well. The medication dose was gradually increased up to 200 mg at bedtime with good benefit. His mood improved rapidly. Anxiety was improved. He felt more "peaceful." Due to his visual impairment, he did not feel comfortable going to groups. Even despite the bed bugs, he preferred to return home. His classification case manager came in to visit and made plans for discharge. He is on a waiting list for the transitional living services ([facility]) apartment program, where he will be getting more support. He feels hopeful about the future and appears to have reached maximal hospital benefit. MENTAL STATUS EXAMINATION: At time of discharge mood and affect were much improved. Anxiety was minimal. Affect definitely improved. Depression was minimal. No signs of dysphoria. Suicidal ideation resolved completely. He was not psychotic. He was not manic. Patient did not hear any voices. No paranoia or thought disorder. Insight and judgment appeared reasonably good. Memory and functions appeared intact. No signs of organicity. No signs of impulsivity or dangerousness. ASSESSMENT: Patient appeared to hae rapid response to low-dose Seroquel, which was well tolerated without signs of dystonia. PLAN: Followup with outpatient mental health services. manager generalit project manager to follow.
== END 2017-03-15 12:00 | disposition home or self-care (01) | DRG 750 ==
LOC: M ED 10:14 → M ED INP 17:59 → M PSY 19:58
PROVIDERS: ADMIT Psychiatry & Neurology Psychiatry; ATTEND Psychiatry & Neurology Psychiatry
DX: F25.1 Schizoaffective disorder, depressive type (principal); I10 Essential (primary) hypertension; E11.9 Type 2 diabetes mellitus without complications; I25.10 Atherosclerotic heart disease of native coronary artery without angina pectoris; H54.8 Legal blindness, as defined in USA; H33.23 Serous retinal detachment, bilateral; J44.9 Chronic obstructive pulmonary disease, unspecified; H40.9 Unspecified glaucoma; E78.5 Hyperlipidemia, unspecified; N40.0 Benign prostatic hyperplasia without lower urinary tract symptoms; N52.9 Male erectile dysfunction, unspecified; L30.9 Dermatitis, unspecified; G47.00 Insomnia, unspecified; F41.9 Anxiety disorder, unspecified; H35.30 Unspecified macular degeneration; F17.210 Nicotine dependence, cigarettes, uncomplicated; H10.9 Unspecified conjunctivitis; L03.213 Periorbital cellulitis; Z95.1 Presence of aortocoronary bypass graft; Z88.8 Allergy status to other drugs, medicaments and biological substances; Z79.82 Long term (current) use of aspirin; Z79.84 Long term (current) use of oral hypoglycemic drugs; Z79.899 Other long term (current) drug therapy

== ENCOUNTER 2017-03-24 10:51 | Emergency (ER) | payer OTHER, MEDICAID ==
[~2017-03-24 10:51] MED LIST changes: +ALPHAGAN 0.1% OU; +BRIM1OPD OS; +HYDR1CRE2 EXT; +KETO5OPD OS; +LISI10TA4 PO; +PREDOPD OS; +SERO200T PO; +VITA2000 PO
[2017-03-24] MEDS ORDERED: ANUSOL HC CREAM 30GM TOP STA (12:31)
[2017-03-24] MEDS ORDERED: hydrOXYzine 25 MG TAB PO ONE (12:45)
[2017-03-24] MEDS ORDERED: HYDR-3363 PO (14:39)
[2017-03-24] MEDS ORDERED: HYDR2.5C54 PR (14:47)
[2017-03-24 14:53] VITALS: BP 122/74
== END 2017-03-24 14:54 | disposition home or self-care (01) ==
LOC: EDBD 10:51 → M ED 10:51
DX: L30.9 Dermatitis, unspecified (principal); W57.XXXA Bitten or stung by nonvenomous insect and other nonvenomous arthropods, initial encounter; Y93.9 Activity, unspecified; Y99.8 Other external cause status; I25.10 Atherosclerotic heart disease of native coronary artery without angina pectoris; I25.2 Old myocardial infarction; E11.9 Type 2 diabetes mellitus without complications; I10 Essential (primary) hypertension; H54.8 Legal blindness, as defined in USA; E78.00 Pure hypercholesterolemia, unspecified; N40.0 Benign prostatic hyperplasia without lower urinary tract symptoms; H40.9 Unspecified glaucoma; F17.200 Nicotine dependence, unspecified, uncomplicated; Z95.1 Presence of aortocoronary bypass graft; Z88.8 Allergy status to other drugs, medicaments and biological substances; Z79.82 Long term (current) use of aspirin; Z79.899 Other long term (current) drug therapy

== ENCOUNTER 2018-02-09 14:33 | Inpatient (IN) | payer OTHER, MEDICAID ==
[2018-02-09 15:17] LABS: HEMATOCRIT 35.6 % (42.0-52.0); MEAN CORPUSCULAR HEMOGLOBIN 30.4 pg (27.0-33.0); MEAN CORPUSCULAR HGB CONC 33.7 g/dl (32.0-36.5); MEAN CORPUSCULAR VOLUME 90.1 fl (80.0-96.0); PLATELET COUNT, AUTOMATED 208 10^3/uL (150-450); RED BLOOD COUNT 3.95 10^6/uL (4.30-6.10); RED CELL DISTRIBUTION WIDTH 13.8 % (11.5-14.5); WHITE BLOOD COUNT 10.8 10^3/uL (4.0-10.0)
[2018-02-09 16:03] LABS: ACETAMINOPHEN LEVEL < 2.0 UG/ML (10.0-30.0); ALBUMIN 3.5 GM/DL (3.2-5.2); ALBUMIN/GLOBULIN RATIO 1.25 (1.00-1.93); ALKALINE PHOSPHATASE 64 U/L (45-117); ALT/SGPT 25 U/L (12-78); ANION GAP 10 MEQ/L (8-16); AST/SGOT 21 U/L (7-37); BILIRUBIN,DIRECT 0.2 MG/DL (0.0-0.2); BILIRUBIN,TOTAL 0.5 MG/DL (0.2-1.0); BLOOD UREA NITROGEN 34 MG/DL (7-18); CALCIUM LEVEL 8.4 MG/DL (8.8-10.2); CARBON DIOXIDE LEVEL 23 MEQ/L (21-32); CHLORIDE LEVEL 105 MEQ/L (98-107); CREATININE FOR GFR 1.16 MG/DL (0.70-1.30); ETHYL ALCOHOL (ETHANOL) 0.005 % (0.000-0.010); GLOMERULAR FILTRATION RATE > 60.0 (>49); GLUCOSE, FASTING 125 MG/DL (70-100); POTASSIUM SERUM 4.7 MEQ/L (3.5-5.1); SALICYLATE LEVEL 3.4 MG/DL (5.0-30.0); SODIUM LEVEL 138 MEQ/L (136-145); TOTAL PROTEIN 6.3 GM/DL (6.4-8.2)
[2018-02-09 16:53] LABS: AMPHETAMINES LEVEL URINE NEGATIVE (NEGATIVE); BARBITURATES URINE NEGATIVE (NEGATIVE); BENZODIAZEPINES URINE NEGATIVE (NEGATIVE); CANNABINOIDS URINE NEGATIVE (NEGATIVE); COCAINE METABOLITE URINE NEGATIVE (NEGATIVE); METHADONE URINE NEGATIVE (NEGATIVE); OPIATES URINE NEGATIVE (NEGATIVE); PHENCYCLIDINE URINE NEGATIVE (NEGATIVE)
[2018-02-09] MEDS ORDERED: diphenhydrAMINE 25 MG CAP PO (18:00)
[2018-02-09] MEDS ORDERED: MAALOX 30 ML SUSP *UDC PO (18:00)
[2018-02-09] MEDS ORDERED: LORazepam 1 MG TAB PO (18:00)
[2018-02-09] MEDS ORDERED: OLANZapine 5 MG TAB PO (18:00)
[2018-02-09] MEDS ORDERED: MOM 30ML SUSPENSION UDC PO (18:00)
[2018-02-09] MEDS ORDERED: LORazepam 2 MG TAB PO (20:19)
[2018-02-09] MEDS ORDERED: OLANZapine 10 MG TAB PO (20:20)
[2018-02-09] MEDS: traZODone 50 MG TAB PO (23:25)
[2018-02-09] MEDS: hydrOXYzine 50 MG TAB PO (23:25)
[2018-02-09] MEDS: TIMOLOL MALEATE 0.5% OPHTH SOLN 5 ML OS (23:26)
[2018-02-09] MEDS: BRIMONIDINE 0.1% OPHTH SOLN 5 ML OS (23:26)
[2018-02-10] MEDS: NICOTINE 21MG/24HR 1 EA TRANSDERMAL TD (09:00)
[2018-02-10] MEDS: KETOROLAC 0.5% OPHTH SOLN OS ×4 (09:40→21:53)
[2018-02-10] MEDS: TIMOLOL MALEATE 0.5% OPHTH SOLN 5 ML OS ×3 (09:40→22:29)
[2018-02-10] MEDS: BRIMONIDINE 0.1% OPHTH SOLN 5 ML OS ×2 (09:40→21:53)
[2018-02-10] MEDS: metFORMIN (GLUCOPHAGE) 1000 MG TABLET PO ×2 (09:48→21:53)
[2018-02-10] MEDS: ACETAMINOPHEN TAB 650MG DOSE (2X325MG) PO (10:32)
[2018-02-10] MEDS: ASPIRIN 81 MG ENTERIC TAB PO (21:53)
[2018-02-10] MEDS: risperiDONE 1 MG TAB PO (21:53)
[2018-02-10] MEDS: LISINOPRIL 10 MG TAB PO (21:54)
[2018-02-10] MEDS: hydrOXYzine 50 MG TAB PO (21:54)
[2018-02-10] MEDS: ATORVASTATIN 20 MG TAB PO (22:29)
[2018-02-10] MEDS: ISOSORBIDE MON. (IMDUR) 30 MG XR TAB PO (22:48)
[2018-02-10] MEDS: BETAMETHASONE VAL 0.1% CR 15 GM TOP (22:49)
[2018-02-11] MEDS: NICOTINE 21MG/24HR 1 EA TRANSDERMAL TD (09:00)
[2018-02-11] MEDS: BRIMONIDINE 0.1% OPHTH SOLN 5 ML OS ×2 (09:00→22:04)
[2018-02-11] MEDS: metFORMIN (GLUCOPHAGE) 1000 MG TABLET PO ×2 (09:00→22:01)
[2018-02-11] MEDS: BETAMETHASONE VAL 0.1% CR 15 GM TOP ×2 (09:00→21:00)
[2018-02-11] MEDS: KETOROLAC 0.5% OPHTH SOLN OS ×4 (09:00→22:04)
[2018-02-11] MEDS: ACETAMINOPHEN TAB 650MG DOSE (2X325MG) PO (11:58)
[2018-02-11] MEDS: LIDOCAINE 5% (LIDODERM) PATCH TD (13:05)
[2018-02-11] MEDS: ATORVASTATIN 20 MG TAB PO (17:06)
[2018-02-11] MEDS: **NOTE PATIENT COMMENT** MISC XX (21:00)
[2018-02-11] MEDS: ISOSORBIDE MON. (IMDUR) 30 MG XR TAB PO (22:00)
[2018-02-11] MEDS: hydrOXYzine 50 MG TAB PO (22:00)
[2018-02-11] MEDS: ASPIRIN 81 MG ENTERIC TAB PO (22:00)
[2018-02-11] MEDS: LISINOPRIL 10 MG TAB PO (22:02)
[2018-02-11] MEDS: risperiDONE 1 MG TAB PO (22:02)
[2018-02-11] MEDS: TIMOLOL MALEATE 0.5% OPHTH SOLN 5 ML OS (22:10)
[2018-02-12] MEDS: traZODone 50 MG TAB PO (00:06)
[2018-02-12] MEDS: NICOTINE 21MG/24HR 1 EA TRANSDERMAL TD (08:24)
[2018-02-12] MEDS: BRIMONIDINE 0.1% OPHTH SOLN 5 ML OS ×2 (08:27→21:00)
[2018-02-12] MEDS: TIMOLOL MALEATE 0.5% OPHTH SOLN 5 ML OS ×2 (08:27→21:00)
[2018-02-12] MEDS: KETOROLAC 0.5% OPHTH SOLN OS ×4 (08:27→21:00)
[2018-02-12] MEDS: BETAMETHASONE VAL 0.1% CR 15 GM TOP ×2 (08:27→21:00)
[2018-02-12] MEDS: metFORMIN (GLUCOPHAGE) 1000 MG TABLET PO ×2 (08:27→21:37)
[2018-02-12] MEDS: LIDOCAINE 5% (LIDODERM) PATCH TD (08:27)
[2018-02-12] MEDS: ATORVASTATIN 20 MG TAB PO (17:29)
[2018-02-12 17:31] LABS: BEDSIDE GLUCOSE 117 MG/DL (80-115)
[2018-02-12] MEDS: risperiDONE 1 MG TAB PO (21:37)
[2018-02-12] MEDS: ASPIRIN 81 MG ENTERIC TAB PO (21:37)
[2018-02-12] MEDS: hydrOXYzine 50 MG TAB PO (21:37)
[2018-02-12] MEDS: LISINOPRIL 10 MG TAB PO (21:38)
[2018-02-12] MEDS: DICLOFENAC SODIUM 75 MG PO (21:39)
[2018-02-12] MEDS: ISOSORBIDE MON. (IMDUR) 30 MG XR TAB PO (21:49)
[2018-02-12] MEDS: **NOTE PATIENT COMMENT** MISC XX (21:49)
[2018-02-13] MEDS: diphenhydrAMINE 50 MG CAP PO (01:02)
[2018-02-13] MEDS: TIMOLOL MALEATE 0.5% OPHTH SOLN 5 ML OS (08:10)
[2018-02-13] MEDS: BETAMETHASONE VAL 0.1% CR 15 GM TOP (08:10)
[2018-02-13] MEDS: DICLOFENAC SODIUM 75 MG PO (08:10)
[2018-02-13] MEDS: metFORMIN (GLUCOPHAGE) 1000 MG TABLET PO (08:10)
[2018-02-13] MEDS: KETOROLAC 0.5% OPHTH SOLN OS (08:10)
[2018-02-13] MEDS: BRIMONIDINE 0.1% OPHTH SOLN 5 ML OS (08:10)
[2018-02-13] MEDS: NICOTINE 21MG/24HR 1 EA TRANSDERMAL TD (08:11)
[2018-02-13] MEDS: LIDOCAINE 5% (LIDODERM) PATCH TD (08:11)
== END 2018-02-13 11:30 | disposition home or self-care (01) | DRG 885 ==
LOC: M ED 14:33 → M ED INP 17:50 → M PSY 20:15
DX: F25.0 Schizoaffective disorder, bipolar type (principal); I10 Essential (primary) hypertension; E11.9 Type 2 diabetes mellitus without complications; I25.10 Atherosclerotic heart disease of native coronary artery without angina pectoris; H54.8 Legal blindness, as defined in USA; H40.9 Unspecified glaucoma; I25.2 Old myocardial infarction; J44.9 Chronic obstructive pulmonary disease, unspecified; E78.5 Hyperlipidemia, unspecified; N40.0 Benign prostatic hyperplasia without lower urinary tract symptoms; N52.9 Male erectile dysfunction, unspecified; L30.9 Dermatitis, unspecified; H35.30 Unspecified macular degeneration; Z90.49 Acquired absence of other specified parts of digestive tract; Z98.49 Cataract extraction status, unspecified eye; Z79.82 Long term (current) use of aspirin; Z79.84 Long term (current) use of oral hypoglycemic drugs; Z88.8 Allergy status to other drugs, medicaments and biological substances; Z79.899 Other long term (current) drug therapy

== ENCOUNTER 2018-02-15 22:07 | Inpatient (IN) | payer MEDICARE, OTHER, MEDICAID ==
[2018-02-15 20:21] LABS: HEMATOCRIT 36.4 % (42.0-52.0); HEMOGLOBIN 12.1 g/dl (13.5-17.5); MEAN CORPUSCULAR HEMOGLOBIN 30.4 pg (27.0-33.0); MEAN CORPUSCULAR HGB CONC 33.2 g/dl (32.0-36.5); MEAN CORPUSCULAR VOLUME 91.5 fl (80.0-96.0); PLATELET COUNT, AUTOMATED 240 10^3/uL (150-450); RED BLOOD COUNT 3.98 10^6/uL (4.30-6.10); RED CELL DISTRIBUTION WIDTH 13.3 % (11.5-14.5); WHITE BLOOD COUNT 11.3 10^3/uL (4.0-10.0)
[2018-02-15 20:39] LABS: ACETAMINOPHEN LEVEL < 2.0 UG/ML (10.0-30.0); ALBUMIN 3.3 GM/DL (3.2-5.2); ALBUMIN/GLOBULIN RATIO 1.06 (1.00-1.93); ALKALINE PHOSPHATASE 76 U/L (45-117); ALT/SGPT 29 U/L (12-78); ANION GAP 12 MEQ/L (8-16); AST/SGOT 21 U/L (7-37); BILIRUBIN,DIRECT 0.1 MG/DL (0.0-0.2); BILIRUBIN,TOTAL 0.3 MG/DL (0.2-1.0); BLOOD UREA NITROGEN 25 MG/DL (7-18); CALCIUM LEVEL 8.2 MG/DL (8.8-10.2); CARBON DIOXIDE LEVEL 21 MEQ/L (21-32); CHLORIDE LEVEL 108 MEQ/L (98-107); CREATININE FOR GFR 1.13 MG/DL (0.70-1.30); ETHYL ALCOHOL (ETHANOL) < 0.003 % (0.000-0.010); GLOMERULAR FILTRATION RATE > 60.0 (>49); GLUCOSE, FASTING 120 MG/DL (70-100); POTASSIUM SERUM 4.8 MEQ/L (3.5-5.1); SALICYLATE LEVEL 3.4 MG/DL (5.0-30.0); SODIUM LEVEL 141 MEQ/L (136-145); TOTAL PROTEIN 6.4 GM/DL (6.4-8.2)
[2018-02-15] MEDS: risperiDONE 2 MG TAB PO (21:00)
[2018-02-15 21:55] LABS: AMPHETAMINES LEVEL URINE NEGATIVE (NEGATIVE); BARBITURATES URINE NEGATIVE (NEGATIVE); BENZODIAZEPINES URINE NEGATIVE (NEGATIVE); CANNABINOIDS URINE NEGATIVE (NEGATIVE); COCAINE METABOLITE URINE NEGATIVE (NEGATIVE); METHADONE URINE NEGATIVE (NEGATIVE); OPIATES URINE NEGATIVE (NEGATIVE); PHENCYCLIDINE URINE NEGATIVE (NEGATIVE)
[~2018-02-15 22:07] MED LIST changes: -ABIL400I IM; -ALPH0.156 OS; -ALPHAGAN 0.1% OU; -ASPI1TAB PO; -ATOR80TA59 PO; -BRIM1OPD OS; -CALTTAB11 PO; -CLEO150C PO; -D 202000 PO; -GLIP10TA6 PO; -GLIP1TAB51 PO; -HYDR1CRE2 EXT; -ISOS30TA4 PO; -KETO5OPD OS; -LIDO1OIN2 TOP; -LIDO5TD TD; -LISI-542 PO; -LISI10TA4 PO; +MAALOX 30 ML SUSP *UDC PO; -METF10004 PO; -METO1TAB33 PO; +MOM 30ML SUSPENSION UDC PO; -PREDOPD OS; -RISATAB3 PO; -SERO200T PO; -TRAZO50TA PO; -TYLE325C PO; -VITA2000 PO; -XALA0.007 OU
[2018-02-16] MEDS: risperiDONE LONG-ACTING 25 MG/2 ML INJ (J2794) IM (09:00)
[2018-02-16] MEDS: ISOSORBIDE MON. (IMDUR) 30 MG XR TAB PO (12:49)
[2018-02-16] MEDS: BRIMONIDINE 0.1% OPHTH SOLN 5 ML OS ×2 (13:02→20:43)
[2018-02-16] MEDS: TIMOLOL MALEATE 0.5% OPHTH SOLN 5 ML OS ×2 (13:10→20:43)
[2018-02-16] MEDS: KETOROLAC 0.5% OPHTH SOLN OS ×3 (13:15→20:43)
[2018-02-16] MEDS: metFORMIN (GLUCOPHAGE) 1000 MG TABLET PO (17:30)
[2018-02-16] MEDS: ATORVASTATIN 20 MG TAB PO (20:40)
[2018-02-16] MEDS: ASPIRIN 81 MG ENTERIC TAB PO (20:40)
[2018-02-16] MEDS: risperiDONE 2 MG TAB PO (20:40)
[2018-02-16] MEDS: LISINOPRIL 5 MG TAB PO (20:41)
[2018-02-16] MEDS: ACETAMINOPHEN TAB 650MG DOSE (2X325MG) PO (21:45)
[2018-02-16] MEDS: traZODone 50 MG TAB PO (23:26)
[2018-02-17 06:34] LABS: HEMATOCRIT 35.1 % (42.0-52.0); HEMOGLOBIN 11.6 g/dl (13.5-17.5); MEAN CORPUSCULAR HEMOGLOBIN 30.6 pg (27.0-33.0); MEAN CORPUSCULAR VOLUME 92.6 fl (80.0-96.0); PLATELET COUNT, AUTOMATED 234 10^3/uL (150-450); RED BLOOD COUNT 3.79 10^6/uL (4.30-6.10); RED CELL DISTRIBUTION WIDTH 13.4 % (11.5-14.5); WHITE BLOOD COUNT 10.7 10^3/uL (4.0-10.0)
[2018-02-17] MEDS: BRIMONIDINE 0.1% OPHTH SOLN 5 ML OS ×2 (08:06→21:35)
[2018-02-17] MEDS: KETOROLAC 0.5% OPHTH SOLN OS ×4 (08:06→21:35)
[2018-02-17] MEDS: TIMOLOL MALEATE 0.5% OPHTH SOLN 5 ML OS ×2 (08:06→21:36)
[2018-02-17] MEDS: metFORMIN (GLUCOPHAGE) 1000 MG TABLET PO ×2 (08:06→17:22)
[2018-02-17] MEDS: ISOSORBIDE MON. (IMDUR) 30 MG XR TAB PO (08:06)
[2018-02-17] MEDS: LIDOCAINE 5% (LIDODERM) PATCH TD (13:26)
[2018-02-17] MEDS: ACETAMINOPHEN TAB 650MG DOSE (2X325MG) PO ×2 (16:09→21:32)
[2018-02-17 17:12] LABS: BEDSIDE GLUCOSE 95 MG/DL (80-115)
[2018-02-17] MEDS ORDERED: **NOTE PATIENT COMMENT** MISC XX (21:00)
[2018-02-17] MEDS: ATORVASTATIN 20 MG TAB PO (21:30)
[2018-02-17] MEDS: risperiDONE 2 MG TAB PO (21:30)
[2018-02-17] MEDS: ASPIRIN 81 MG ENTERIC TAB PO (21:30)
[2018-02-17] MEDS: LISINOPRIL 5 MG TAB PO (21:30)
[2018-02-17] MEDS: **NOTE PATIENT COMMENT** MISC XX (21:32)
[2018-02-17] MEDS: traZODone 50 MG TAB PO (22:59)
[2018-02-18] MEDS: TIMOLOL MALEATE 0.5% OPHTH SOLN 5 ML OS ×2 (08:49→21:15)
[2018-02-18] MEDS: KETOROLAC 0.5% OPHTH SOLN OS ×4 (08:49→21:32)
[2018-02-18] MEDS: BRIMONIDINE 0.1% OPHTH SOLN 5 ML OS ×2 (08:49→22:27)
[2018-02-18] MEDS: ISOSORBIDE MON. (IMDUR) 30 MG XR TAB PO (08:52)
[2018-02-18] MEDS: LIDOCAINE 5% (LIDODERM) PATCH TD (08:53)
[2018-02-18] MEDS: metFORMIN (GLUCOPHAGE) 1000 MG TABLET PO ×2 (08:54→17:05)
[2018-02-18] MEDS: BETAMETHASONE VAL 0.1% CR 15 GM TOP ×2 (11:20→21:13)
[2018-02-18] MEDS: ACETAMINOPHEN TAB 650MG DOSE (2X325MG) PO ×2 (11:33→21:15)
[2018-02-18 16:43] LABS: BEDSIDE GLUCOSE 110 MG/DL (80-115)
[2018-02-18] MEDS: **NOTE PATIENT COMMENT** MISC XX (21:00)
[2018-02-18] MEDS: ATORVASTATIN 20 MG TAB PO (21:10)
[2018-02-18] MEDS: ASPIRIN 81 MG ENTERIC TAB PO (21:10)
[2018-02-18] MEDS: risperiDONE 2 MG TAB PO (21:12)
[2018-02-18] MEDS: LISINOPRIL 5 MG TAB PO (21:12)
[2018-02-18] MEDS: traZODone 50 MG TAB PO (23:33)
[2018-02-19 05:02] LABS: BEDSIDE GLUCOSE 119 MG/DL (80-115)
[2018-02-19] MEDS: ISOSORBIDE MON. (IMDUR) 30 MG XR TAB PO (08:27)
[2018-02-19] MEDS: BETAMETHASONE VAL 0.1% CR 15 GM TOP ×2 (08:28→20:10)
[2018-02-19] MEDS: LIDOCAINE 5% (LIDODERM) PATCH TD (08:28)
[2018-02-19] MEDS: metFORMIN (GLUCOPHAGE) 1000 MG TABLET PO ×2 (08:29→17:46)
[2018-02-19] MEDS: TIMOLOL MALEATE 0.5% OPHTH SOLN 5 ML OS ×2 (08:30→20:10)
[2018-02-19] MEDS: BRIMONIDINE 0.1% OPHTH SOLN 5 ML OS ×2 (08:30→20:09)
[2018-02-19] MEDS: KETOROLAC 0.5% OPHTH SOLN OS ×4 (08:30→21:00)
[2018-02-19] MEDS: ACETAMINOPHEN TAB 650MG DOSE (2X325MG) PO ×3 (08:31→22:13)
[2018-02-19 17:47] LABS: BEDSIDE GLUCOSE 117 MG/DL (80-115)
[2018-02-19] MEDS: ASPIRIN 81 MG ENTERIC TAB PO (20:10)
[2018-02-19] MEDS: LISINOPRIL 5 MG TAB PO (20:14)
[2018-02-19] MEDS: risperiDONE 2 MG TAB PO (20:14)
[2018-02-19] MEDS: ATORVASTATIN 20 MG TAB PO (20:14)
[2018-02-19] MEDS: **NOTE PATIENT COMMENT** MISC XX (21:00)
[2018-02-19] MEDS: LORazepam 1 MG TAB PO (22:11)
[2018-02-19] MEDS: traZODone 50 MG TAB PO (22:11)
[2018-02-20 06:31] LABS: BEDSIDE GLUCOSE 122 MG/DL (80-115)
[2018-02-20] MEDS: metFORMIN (GLUCOPHAGE) 1000 MG TABLET PO (08:24)
[2018-02-20] MEDS: ISOSORBIDE MON. (IMDUR) 30 MG XR TAB PO (09:00)
[2018-02-20 09:08] LABS: HEMATOCRIT 34.2 % (42.0-52.0); HEMOGLOBIN 11.4 g/dl (13.5-17.5); MEAN CORPUSCULAR HEMOGLOBIN 30.6 pg (27.0-33.0); MEAN CORPUSCULAR HGB CONC 33.3 g/dl (32.0-36.5); MEAN CORPUSCULAR VOLUME 91.9 fl (80.0-96.0); PLATELET COUNT, AUTOMATED 207 10^3/uL (150-450); RED BLOOD COUNT 3.72 10^6/uL (4.30-6.10); RED CELL DISTRIBUTION WIDTH 13.4 % (11.5-14.5)
[2018-02-20 09:41] LABS: ALBUMIN 3.1 GM/DL (3.2-5.2); ALBUMIN/GLOBULIN RATIO 1.11 (1.00-1.93); ALKALINE PHOSPHATASE 71 U/L (45-117); ALT/SGPT 39 U/L (12-78); ANION GAP 8 MEQ/L (8-16); AST/SGOT 28 U/L (7-37); BILIRUBIN,TOTAL 0.2 MG/DL (0.2-1.0); BLOOD UREA NITROGEN 15 MG/DL (7-18); CALCIUM LEVEL 8.8 MG/DL (8.8-10.2); CARBON DIOXIDE LEVEL 26 MEQ/L (21-32); CHLORIDE LEVEL 106 MEQ/L (98-107); CREATININE FOR GFR 0.89 MG/DL (0.70-1.30); GLOMERULAR FILTRATION RATE > 60.0 (>49); GLUCOSE, FASTING 180 MG/DL (70-100); POTASSIUM SERUM 4.3 MEQ/L (3.5-5.1); SODIUM LEVEL 140 MEQ/L (136-145); TOTAL PROTEIN 5.9 GM/DL (6.4-8.2)
[2018-02-20] MEDS: BETAMETHASONE VAL 0.1% CR 15 GM TOP (09:58)
[2018-02-20] MEDS: KETOROLAC 0.5% OPHTH SOLN OS (09:59)
[2018-02-20] MEDS: LIDOCAINE 5% (LIDODERM) PATCH TD (09:59)
[2018-02-20] MEDS: TIMOLOL MALEATE 0.5% OPHTH SOLN 5 ML OS (10:10)
[2018-02-20] MEDS: BRIMONIDINE 0.1% OPHTH SOLN 5 ML OS (10:25)
[2018-02-20] MEDS: ACETAMINOPHEN TAB 650MG DOSE (2X325MG) PO (10:26)
== END 2018-02-20 14:40 | disposition home or self-care (01) | DRG 885 ==
LOC: M ED 22:07 → M PSY 22:45
DX: F25.0 Schizoaffective disorder, bipolar type (principal); F60.2 Antisocial personality disorder; F60.81 Narcissistic personality disorder; H35.30 Unspecified macular degeneration; H54.8 Legal blindness, as defined in USA; F17.200 Nicotine dependence, unspecified, uncomplicated; I10 Essential (primary) hypertension; E11.9 Type 2 diabetes mellitus without complications; I25.10 Atherosclerotic heart disease of native coronary artery without angina pectoris; J44.9 Chronic obstructive pulmonary disease, unspecified; H40.9 Unspecified glaucoma; E78.5 Hyperlipidemia, unspecified; N40.0 Benign prostatic hyperplasia without lower urinary tract symptoms; Z95.1 Presence of aortocoronary bypass graft; Z98.41 Cataract extraction status, right eye; Z98.42 Cataract extraction status, left eye; Z79.82 Long term (current) use of aspirin; Z79.84 Long term (current) use of oral hypoglycemic drugs; Z79.899 Other long term (current) drug therapy; Z88.8 Allergy status to other drugs, medicaments and biological substances

== ENCOUNTER 2018-09-27 13:05 | Inpatient (IN) | payer MEDICARE, MEDICAID ==
[~2018-09-27 13:05] MED LIST changes: +ABIL400I IM; +ALPH0.156 OS; +ALPHAGAN 0.1% OU; +ASPI1TAB PO; +ATOR80TA59 PO; +BIMA01SOL OS; +BRIM1OPD OS; +CALTTAB11 PO; +CLEO150C PO; +D 202000 PO; +DICL75TA PO; +DIPH50TA3 PO; +GLIP10TA18 PO; +GLIP10TA6 PO; +HYDR-3363 PO; +HYDR1CRE2 EXT; +HYDR2.5C54 PR; +HYDR50TA70 PO; +HYDRO50TAB PO; +ISOS30TA4 PO; +KETO5OPD OS; +LIDO1OIN2 TOP; +LIDO5DIS41 TD; +LIDO5TD TD; +LISI-542 PO; +LISI10TA4 PO; +LORA2TAB9 PO; -MAALOX 30 ML SUSP *UDC PO; +METF10004 PO; +METO1TAB33 PO; -MOM 30ML SUSPENSION UDC PO; +MOME0.1O TOP; +PATIENT COMMENT; +PREDOPD OS; +RISATAB3 PO; +RISP1TAB42 PO; +RISP25INJ IM; +RISP2TAB32 PO; +SERO200T PO; +TIMO0.5S29 OS; +TRAZ-160 PO; +TRAZO50TA PO; +TYLE325C PO; +VITA2000 PO; +XALA0.007 OU
[2018-09-27] MEDS ORDERED: BETI1SOL OS (13:37)
[2018-09-27] MEDS ORDERED: GABA-843 (13:37)
[2018-09-27] MEDS ORDERED: NITR0.4S14 SL (13:37)
[2018-09-27] MEDS ORDERED: AMOX875T2 PO (13:37)
[2018-09-27] MEDS ORDERED: METO1TAB33 PO (13:37)
[2018-09-27] MEDS ORDERED: MELO15TA28 PO (13:37)
[2018-09-27 14:25] LABS: BASO # 0.1 10^3/uL (0.0-0.2); BASO % 0.6 % (0.0-1.0); EOS # 0.3 10^3/uL (0.0-0.50); EOS % 4.1 % (0.0-3.0); LYMPH # 1.4 10^3/uL (1.5-4.5); LYMPH % 18.1 % (24.0-44.0); MEAN CORPUSCULAR HEMOGLOBIN 25.2 pg (27.0-33.0); MEAN CORPUSCULAR HGB CONC 31.3 g/dl (32.0-36.5); MEAN CORPUSCULAR VOLUME 80.6 fl (80.0-96.0); MONO # 0.8 10^3/uL (0.0-0.8); MONO % 9.9 % (0.0-5.0); NEUTROPHILS # 5.2 10^3/uL (1.8-7.7); NEUTROPHILS % 67.2 % (36.0-66.0); PLATELET COUNT, AUTOMATED 188 10^3/uL (150-450); RED BLOOD COUNT 3.97 10^6/uL (4.30-6.10); WHITE BLOOD COUNT 7.8 10^3/uL (4.0-10.0)
[2018-09-27] MEDS ORDERED: IPRATROPIUM 0.5MG/ALBUTEROL 2.5MG INH SOL UD 3ML (DUONEB)(J7620) NEB ONE (14:30)
[2018-09-27 14:42] LABS: INR 1.14; PROTHROMBIN TIME 14.8 SECONDS (12.1-14.4)
[2018-09-27 15:03] LABS: ABG BASE EXCESS -3.3 (-2.0-2.0); ABG HCO3 21.2 MEQ/L (22.0-26.0); ABG O2 SATURATION 87.2 % (95.0-99.0); ABG PARTIAL PRESSURE CO2 35.9 mmHg (35.0-45.0); ABG PARTIAL PRESSURE O2 55.1 mmHg (75.0-100.0); ABG STANDARD HCO3 21.5 MEQ/L (22.0-26.0); ABG TOTAL CO2 22.3 MEQ/L (23.0-31.0); ABG pH (ARTERIAL) 7.389 UNITS (7.350-7.450)
[2018-09-27 15:07] LABS: ALBUMIN 2.9 GM/DL (3.2-5.2); ALT/SGPT 28 U/L (12-78); BILIRUBIN,DIRECT 0.1 MG/DL (0.0-0.2); BILIRUBIN,TOTAL 0.2 MG/DL (0.2-1.0); BLOOD UREA NITROGEN 18 MG/DL (7-18); CALCIUM LEVEL 8.2 MG/DL (8.8-10.2); CARBON DIOXIDE LEVEL 26 MEQ/L (21-32); CHLORIDE LEVEL 110 MEQ/L (98-107); CPK CREATINE PHOSPHOKINASE 61 U/L (39-308); CREATININE FOR GFR 0.98 MG/DL (0.70-1.30); GLOMERULAR FILTRATION RATE > 60.0 (>42); GLUCOSE, FASTING 90 MG/DL (70-100); MB/CK RELATIVE INDEX 2.95 (< OR =4); NT-PRO BNP 8969 PG/ML (<125); POTASSIUM SERUM 4.4 MEQ/L (3.5-5.1); SODIUM LEVEL 142 MEQ/L (136-145); TOTAL PROTEIN 5.8 GM/DL (6.4-8.2); TROPONIN I 0.04 NG/ML (< 0.10)
--- NOTE | 2018-09-27 15:24 | REP ---
CHEST, TWO VIEWS: Two views of the chest are performed and compared to prior study of05/20/2014. There is a left basilar infiltrate. Right lung appears clear. There appears to be cardiomegaly. There is calcification of the thoracic aorta. Multiple sternal wires and mediastinal clips are present. There are degenerative changes of the spine. IMPRESSION: Dense left basilar infiltrate. Electronically Signed by Kee Lopez MD 09/27/2018 05:32 P
[2018-09-27] MEDS ORDERED: AZITHROMYCIN INJ 500 MG, VIAL MATE ADAPTER 1 EACH in D5W 250 ML IV ONE (15:30)
[2018-09-27] MEDS ORDERED: cefTRIAXone SOD 1 GM in D5W MINI-BAG PLUS 50 ML IV ONE (15:30)
[2018-09-27] MEDS ORDERED: ONDANSETRON 4 MG TAB (S0181) PO PRN (15:45)
[2018-09-27] MEDS ORDERED: ACETAMINOPHEN TAB 650MG DOSE (2X325MG) PO PRN (15:45)
[2018-09-27] MEDS ORDERED: HYDR50TA70 PO (15:59)
[2018-09-27 16:08] LABS: INFLUENZA A AMPLIFICATION NEGATIVE (NEGATIVE); INFLUENZA B AMPLIFICATION NEGATIVE (NEGATIVE)
[2018-09-27] MEDS ORDERED: BIMA01SOL OS (16:11)
[2018-09-27] MEDS ORDERED: LISI-542 PO (16:16)
--- NOTE | 2018-09-27 17:58 | HPEPDOC ---
[facility] Medical History & Physical Date of Admission Sep 27, 2018 History and Physical CHIEF COMPLAINT: COUGH AND SOB This is a 68 yo male with multiple pmhx who presented to the ed after having 4 days of respiratory symptoms - cough, sob, runny nose, and went to urgent care and was treated with abx (pt unsure of the name), but without much improvement, so he came to the ed. cxr found bibasilar infiltrate. He is being treated for PNA. Denies any fevers, chills, weakness, fatigue, BEATTY, CP, palpitations, abdominal pain, N/V/D or changes in bowel or bladder habits. REVIEW OF SYSTEMS: All 14 points ROS is negative except what's stated in HPI PHYSICAL EXAMINATION: GEN: no acute distress HEENT : no lymphadenopathy, legal blindness, pupils mildly reactive, no oropharyngeal erythema or exudates CVS: Normal S1/s2, no murmurs, rubs or gallops, RESP: b/ibasilar decreased breath sounds, Lungs are clear to auscultation bilaterally, no crackles, wheezes or rhonchi Abd: soft, nontender, nondistended, + BS MSK: full ROM, 5/5 strength in all extremities , signs of chronic venous stasis - skin changes, trace edema Integumentary: no rash or bruises Neuro: AOAx3, no focal deficit psych: normal mood, good judgement and cooperative EKG NSR at 64bpm, nonspecific ST-T wave, abnormality PMHx: Hypertension NIDDM CAD/IWMI 1985. COPD Glaucoma Hyperlipidemia Degenerative disc disease BPH Erectile dysfunction Eczema Anxiety Depression Legal blindness Macular degeneration PSHX: CABG 3 2000 cataract bilaterally Detached retina repair bilaterally SOCHX: Resides in: [facility] Marital Status: Single Employment: Disabled Tobacco use: Smoker 1/2 PPD for 50yrs ETOH: Denies Illicit Drugs: Denies IV Drug Use: Denies Tattoos done unprofessionally: Denies FAMHX: Mother: , CHF, breast cancer Father: , [place] Siblings: One brother Alive, well Assessment PNA (CAP) Plan c/w cefriaxone and azithromycin f/u sputum cx and bacterial ag resp panel c/w home meds - except the nsaids and metformin ISS and hypoglycemic protocol f/u hba1c dvt ppx full code, from home Vital Signs Vital Signs Date Time Temp Pulse Resp B/P (MAP) Pulse Ox O2 Delivery O2 Flow Rate FiO2 09/27/18 14:19 Room Air 09/27/18 13:24 97.0 63 145/78 (100) 93 09/27/18 13:16 22 Laboratory Data Labs 24H Laboratory Tests 2 09/27/18 14:13: Immature Granulocyte % (Auto) 0.1, White Blood Count 7.8, Red Blood Count 3.97L, Hemoglobin 10.0L, Hematocrit 32.0L, Mean Corpuscular Volume 80.6, Mean Brayan uscular Hemoglobin 25.2L, Mean Corpuscular Hemoglobin Concent 31.3L, Red Cell Distribution Width 15.3H, Platelet Count 188, Neutrophils (%) (Auto) 67.2H, Lymphocytes (%) (Auto) 18.1L, Monocytes (%) (Auto) 9.9H, Eosinophils (%) (Auto) 4.1H, Basophils (%) (Auto) 0.6, Neutrophils # (Auto) 5.2, Lymphocytes # (Auto) 1.4L, Monocytes # (Auto) 0.8, Eosinophils # (Auto) 0.3, Basophils # (Auto) 0.1, Nucleated Red Blood Cells % (auto) 0.0, Prothrombin Time 14.8H, Prothromb Time International Ratio 1.14, Anion Gap 6L, Glomerular Filtration Rate > 60.0, Calcium Level 8.2L, Aspartate Amino Transf (AST/SGOT) 14, Alanine Aminotransferase (ALT/SGPT) 28, Alkaline Phosphatase 80, Total Bilirubin 0.2, Direct Bilirubin 0.1, Total Creatine Kinase 61, Creatine Kinase MB 2.0, Creatine Kinase MB Relative Index 2.95, Troponin I 0.04, ND-Hay-S-Type Natriuretic Peptide 8969H, Total Protein 5.8L, Albumin 2.9L, Albumin/Globulin Ratio 1.00, Thyroid Stimulating Hormone (TSH) 2.110 09/27/18 14:38: 09/27/18 14:52: Blood Gas Bicarbonate Standard 21.5L, Arterial Blood pH 7.389, Arterial Blood Partial Pressure CO2 35.9, Arterial Blood Partial Pressure O2 55.1L, Arterial Blood Total CO2 22.3L, Arterial Blood HCO3 21.2L, Arterial Blood Base Excess - 3.3L, Arterial Blood Oxygen Saturation 87.2L CBC/BMP Laboratory Tests 09/27/18 14:13 Red Blood Count 3.97 L, Mean Corpuscular Volume 80.6, Mean Corpuscular Hemoglobin 25.2 L, Mean Corpuscular Hemoglobin Concent 31.3 L, Red Cell Di stribution Width 15.3 H, Neutrophils (%) (Auto) 67.2 H, Lymphocytes (%) (Auto) 18.1 L, Monocytes (%) (Auto) 9.9 H, Eosinophils (%) (Auto) 4.1 H, Basophils (%) (Auto) 0.6, Neutrophils # (Auto) 5.2, Lymphocytes # (Auto) 1.4 L, Monocytes # (Auto) 0.8, Eosinophils # (Auto) 0.3, Basophils # (Auto) 0.1 Microbiology Microbiology 09/27/18 Blood Culture, Received Pending 09/27/18 Blood Culture, Received Pending Home Medications Scheduled Amoxicillin/Clavulanate Potas (Amoxicillin/Clavulanate P 875-125 mg) 1 Tab Tab, 1 TAB PO BID FILLED 09/19 X 10 DAY SUPPLY Aspirin (Aspirin 81) 81 Mg Tab, 81 MG PO QHS Atorvastatin Calcium (Atorvastatin Calcium) 80 Mg Tab, 80 MG PO QHS Bimatoprost (Lumigan) 50 Drop/2.5 Ml Sudha, 1 DROP OS QHS Brimonidine Tartrate 0.1% (Alphagan P) 100 Drop/5 Ml Soln, 1 DROP OS QHS Hydroxyzine HCl (Hydroxyzine HCl) 50 Mg Tab, 50 MG PO QHS Isosorbide Mononitrate (Isosorbide Mononitrate ER) 30 Mg Tab, 30 MG PO QHS Ketorolac Tromethamine (Ketorolac Tromethamine) 0.5 % Sudha, 1 DROP OS QHS Lisinopril (Lisinopril) 5 Mg Tab, 5 MG PO QHS Meloxicam (Meloxicam) 15 Mg Tab, 15 MG PO DAILY Metformin Hydrochloride (Metformin HCl) 1,000 Mg Tab, 1,000 MG PO BID Metoprolol Succinate (Metoprolol Succinate ER) 100 Mg Tab, 100 MG PO BID Timolol Base (Betimol) 0.25 % Sudha, 1 DROP OS QHS Scheduled PRN Nitroglycerin (Nitroglycerin) 0.4 Mg Sub, 0.4 MG SL NITRO PRN for CHEST PAIN Allergies Coded Allergies: Haloperidol (Verified Allergy, Unknown, 09/27/18) MUNIR RUSH MD Sep 27, 2018 16:01
[2018-09-27] MEDS ORDERED: GLUCAGON FOR INJ 1 MG VIAL (J1610) SC PRN (18:00)
[2018-09-27] MEDS ORDERED: GLUCOSE 4 GM CHEW TABLET PO PRN (18:00)
[2018-09-27] MEDS ORDERED: DEXTROSE 50% 50 ML SYRINGE IV PRN (18:00)
[2018-09-27] MEDS: IPRATROPIUM 0.5MG/ALBUTEROL 2.5MG INH SOL UD 3ML (DUONEB)(J7620) NEB PRN (18:34)
[2018-09-27 18:38] LABS: HEMOGLOBIN A1c 6.9 %
[2018-09-27] MEDS: PERCOCET 5MG/325MG TAB PO PRN (19:51)
--- NOTE | 2018-09-27 20:58 | ECGEPIP ---
Stationary ECG Study [facility] - ED Test Date: 2018-09-27 Pat Name: RIC ORTIZ Department: Room: - Gender: M [employer]: : 1950 Requested By: Kyle Hackett Order Number: [id number] Reading MD: Elin Owens Measurements Intervals Rozet Rate: 64 P: -6 DE: 188 QRS: 10 QRSD: 124 T: 153 QT: 458 QTc: 475 Interpretive Statements SINUS RHYTHM MODERATE INTRAVENTRICULAR CONDUCTION DELAY NONSPECIFIC ST & T-WAVE ABNORMALITY PROLONGED QT INTERVAL DECREASED RATE 02/16/18 Electronically Signed On 09-27-2018 20:58:17 EST by Elin Owens
[2018-09-27] MEDS: TIMOLOL MALEATE 0.25% OPHTH SOLN 5 ML OS SCH (21:43)
[2018-09-27] MEDS: BRIMONIDINE 0.1% OPHTH SOLN 5 ML OS SCH (21:43)
[2018-09-27] MEDS: ASPIRIN 81 MG ENTERIC TAB PO SCH (21:59)
[2018-09-27] MEDS: LISINOPRIL 5 MG TAB PO SCH (21:59)
[2018-09-27] MEDS: ATORVASTATIN 20 MG TAB PO SCH (21:59)
[2018-09-27] MEDS: ISOSORBIDE MON. (IMDUR) 30 MG XR TAB PO SCH (21:59)
[2018-09-27] MEDS: METOPROLOL SUCC (TopROL XL) 100MG *XL* TAB PO SCH (22:00)
[2018-09-27] MEDS: HEPARIN SOD (PORCINE) 5000 UNITS/ML VIAL SC SCH (22:00)
[2018-09-28] MEDS: IPRATROPIUM 0.5MG/ALBUTEROL 2.5MG INH SOL UD 3ML (DUONEB)(J7620) NEB PRN ×5 (02:34→20:13)
[2018-09-28] MEDS: PERCOCET 5MG/325MG TAB PO PRN ×2 (06:10→21:22)
[2018-09-28] MEDS: HEPARIN SOD (PORCINE) 5000 UNITS/ML VIAL SC SCH ×3 (06:10→21:23)
[2018-09-28 07:30] VITALS: BP 111/65
[2018-09-28 07:41] LABS: BASO % 0.5 % (0.0-1.0); EOS # 0.2 10^3/uL (0.0-0.50); EOS % 2.6 % (0.0-3.0); HEMATOCRIT 29.2 % (42.0-52.0); HEMOGLOBIN 9.2 g/dl (13.5-17.5); LYMPH # 1.2 10^3/uL (1.5-4.5); LYMPH % 16.3 % (24.0-44.0); MEAN CORPUSCULAR HEMOGLOBIN 24.7 pg (27.0-33.0); MEAN CORPUSCULAR HGB CONC 31.5 g/dl (32.0-36.5); MEAN CORPUSCULAR VOLUME 78.5 fl (80.0-96.0); MONO # 0.6 10^3/uL (0.0-0.8); MONO % 8.4 % (0.0-5.0); NEUTROPHILS # 5.3 10^3/uL (1.8-7.7); NEUTROPHILS % 72.1 % (36.0-66.0); PLATELET COUNT, AUTOMATED 170 10^3/uL (150-450); RED BLOOD COUNT 3.72 10^6/uL (4.30-6.10); WHITE BLOOD COUNT 7.4 10^3/uL (4.0-10.0)
[2018-09-28 08:07] LABS: BLOOD UREA NITROGEN 15 MG/DL (7-18); CARBON DIOXIDE LEVEL 25 MEQ/L (21-32); CHLORIDE LEVEL 110 MEQ/L (98-107); CREATININE FOR GFR 0.62 MG/DL (0.70-1.30); GLOMERULAR FILTRATION RATE > 60.0 (>42); GLUCOSE, FASTING 100 MG/DL (70-100); MAGNESIUM LEVEL 1.9 MG/DL (1.8-2.4); POTASSIUM SERUM 4.3 MEQ/L (3.5-5.1); SODIUM LEVEL 140 MEQ/L (136-145)
[2018-09-28] MEDS: HumaLOG INSULIN (NovoLOG) PER UNIT SC SCH ×3 (08:15→17:34)
[2018-09-28] MEDS: METOPROLOL SUCC (TopROL XL) 100MG *XL* TAB PO SCH ×2 (08:43→21:22)
[2018-09-28 12:00] VITALS: BP 177/83
--- NOTE | 2018-09-28 14:02 | IPNPDOC ---
Text Note Date of Service The patient was seen on 09/28/18. NOTE CHIEF COMPLAINT: COUGH AND SOB Subjective: Patient was examined at beside. He stated that when he was sleeping he felt like he was drowning. Last night was better for him but he has been experiencing that symptom for a while. He was afebrile over night. He denies chest pain. Overnight he episodes of low oxygen saturation. He was placed on nasal cannula PE Vitals: See below GENERAL APPEARANCE: Alert, no acute distress. Speaking in full sentences, no SOB SKIN: Warm, well perfused. no fever ENT: Very minimal JVD LUNGS: Soft crackles heard in bilateral lung luz HEART: Normal S1, S2 normal ABDOMEN: Soft. non distended EXTREMITIES: Moves all extremities equally. No gross deformities. No edema Assessment Pt is a 68 yo male presenting with cough, sob, runny nose, he failed out pt anti biotic therapy.Chest X ray showed bibasilar infiltrate. He was admitted for PNA. #Pneumonia 2/2 community acquired, 2/2 aspiration, CXR: Dense left basilar infiltrate -Failed out patient amoxicillin/clavulanate therapy -Respiratory Panel Negative -Azithromycin -Ceftriaxone #?CHF -BNP on presentation was 8969 -Pt does not appear to be fluid overloaded clinically does not have CHF. He is saturating appropriately on room air about 95. He does not appear to be in respiratory distress -Echo ordered -Monitor for improvement with treatment of antibiotics should he fail to improve could consider this as an alternative etiology given his subjective complaints however there is not much objectively her clinically to correlate with #Overnight desaturation 2/2 to posible RACHELLE -Titrate O2 for sats greater than 88 -Noctural pulse ox ordered #Diabetes -ISS, will likely resume home meds tomorrow #HTN -continue home meds #DVT -Heparin Full Code VS,Fishbone, I+O VS, Fishbone, I+O Laboratory Tests 09/27/18 14:13 Red Blood Count 3.97 L, Mean Corpuscular Volume 80.6, Mean Corpuscular He moglobin 25.2 L, Mean Corpuscular Hemoglobin Concent 31.3 L, Red Cell Distribution Width 15.3 H, Neutrophils (%) (Auto) 67.2 H, Lymphocytes (%) (Auto) 18.1 L, Monocytes (%) (Auto) 9.9 H, Eosinophils (%) (Auto) 4.1 H, Basophils (%) (Auto) 0.6, Neutrophils # (Auto) 5.2, Lymphocytes # (Auto) 1.4 L, Monocytes # (Auto) 0.8, Eosinophils # (Auto) 0.3, Basophils # (Auto) 0.1 09/28/18 07:23 Red Blood Count 3.72 L, Mean Corpuscular Volume 78.5 L, Mean Corpuscular Hemoglobin 24.7 L, Mean Corpuscular Hemoglobin Concent 31.5 L, Red Cell Distribution Width 15.3 H, Neutrophils (%) (Auto) 72.1 H, Lymphocytes (%) (Auto) 16.3 L, Monocytes (%) (Auto) 8.4 H, Eosinophils (%) (Auto) 2.6, Basophils (%) (Auto) 0.5, Neutrophils # (Auto) 5.3, Lymphocytes # (Auto) 1.2 L, Monocytes # (Auto) 0.6, Eosinophils # (Auto) 0.2, Basophils # (Auto) 0.0, Calcium Level 8.0 L Vital Signs Date Time Temp Pulse Resp B/P (MAP) Pulse Ox O2 Delivery O2 Flow Rate FiO2 09/28/18 08:43 57 111/65 09/28/18 08:42 18 09/28/18 02:16 97.9 95 Nasal Cannula 3.0 I&O- Last 24 Hours up to 6 AM 09/28/18 06:00 Intake Total 305 ml Balance 305 ml GME ATTESTATION GME ATTESTATION My faculty preceptor for this patient encounter was physically present during the encounter and was fully available. All aspects of the patient interview, examination, medical decision making process, and medical care plan development were reviewed and approved by the faculty preceptor. The faculty preceptor is aware and concurs with the plan as stated in the body of this note and will attest to such by his/her cosignature. NAVEEN CHAN DO Sep 28, 2018 10:40 JEANNINE MCCALL MD Sep 29, 2018 13:45
[2018-09-28 14:41] VITALS: O2SAT 95
[2018-09-28] MEDS ORDERED: cefTRIAXone SOD 1 GM in D5W MINI-BAG PLUS 50 ML IV SCH (17:00)
[2018-09-28] MEDS: ATORVASTATIN 20 MG TAB PO SCH (21:19)
[2018-09-28] MEDS: ASPIRIN 81 MG ENTERIC TAB PO SCH (21:19)
[2018-09-28] MEDS: BRIMONIDINE 0.1% OPHTH SOLN 5 ML OS SCH (21:20)
[2018-09-28] MEDS: TIMOLOL MALEATE 0.25% OPHTH SOLN 5 ML OS SCH (21:20)
[2018-09-28 21:22] VITALS: BP 123/71
[2018-09-28] MEDS: LISINOPRIL 5 MG TAB PO SCH (21:22)
[2018-09-28] MEDS: ISOSORBIDE MON. (IMDUR) 30 MG XR TAB PO SCH (21:23)
[2018-09-28 22:00] VITALS: BP 123/71
[2018-09-28] MEDS: NORCO, ANEXSIA 5/325MG TABLET (HYDROcodone/ACETAMINOPHEN) PO PRN ×2 (23:18→23:25)
[2018-09-29] MEDS: IPRATROPIUM 0.5MG/ALBUTEROL 2.5MG INH SOL UD 3ML (DUONEB)(J7620) NEB PRN ×2 (04:04→05:38)
[2018-09-29 06:00] VITALS: BP 131/82
[2018-09-29] MEDS: HEPARIN SOD (PORCINE) 5000 UNITS/ML VIAL SC SCH (06:04)
[2018-09-29] MEDS: PERCOCET 5MG/325MG TAB PO PRN (06:04)
[2018-09-29 06:45] LABS: BASO # 0.1 10^3/uL (0.0-0.2); BASO % 0.7 % (0.0-1.0); EOS # 0.4 10^3/uL (0.0-0.50); EOS % 5.1 % (0.0-3.0); HEMATOCRIT 29.2 % (42.0-52.0); HEMOGLOBIN 9.3 g/dl (13.5-17.5); LYMPH # 1.1 10^3/uL (1.5-4.5); LYMPH % 15.3 % (24.0-44.0); MEAN CORPUSCULAR HEMOGLOBIN 25.1 pg (27.0-33.0); MEAN CORPUSCULAR HGB CONC 31.8 g/dl (32.0-36.5); MEAN CORPUSCULAR VOLUME 78.7 fl (80.0-96.0); MONO # 0.6 10^3/uL (0.0-0.8); NEUTROPHILS # 4.8 10^3/uL (1.8-7.7); NEUTROPHILS % 69.6 % (36.0-66.0); PLATELET COUNT, AUTOMATED 156 10^3/uL (150-450); RED BLOOD COUNT 3.71 10^6/uL (4.30-6.10); WHITE BLOOD COUNT 6.9 10^3/uL (4.0-10.0)
[2018-09-29 07:04] LABS: BLOOD UREA NITROGEN 14 MG/DL (7-18); CALCIUM LEVEL 8.2 MG/DL (8.8-10.2); CARBON DIOXIDE LEVEL 25 MEQ/L (21-32); CHLORIDE LEVEL 109 MEQ/L (98-107); CREATININE FOR GFR 0.66 MG/DL (0.70-1.30); GLOMERULAR FILTRATION RATE > 60.0 (>42); GLUCOSE, FASTING 95 MG/DL (70-100); MAGNESIUM LEVEL 1.9 MG/DL (1.8-2.4); POTASSIUM SERUM 4.5 MEQ/L (3.5-5.1); SODIUM LEVEL 140 MEQ/L (136-145)
[2018-09-29] MEDS ORDERED: CEFD300CAP PO (08:20)
[2018-09-29] MEDS ORDERED: AZIT500T2 PO (08:20)
[2018-09-29] MEDS ORDERED: AZITHROMYCIN INJ 500 MG, VIAL MATE ADAPTER 1 EACH in D5W 250 ML IV SCH (16:00)
--- NOTE | 2018-09-29 16:51 | DSES ---
DATE OF ADMISSION: 09/27/2018 DATE OF DISCHARGE: 09/29/2018 Left against medical advice. ADMITTING DIAGNOSIS: Community-acquired pneumonia. SECONDARY DIAGNOSES: 1. Hypertension. 2. Coronary artery disease. 3. Wnn-upkxiah-jjyjhdozs diabetes mellitus. 4. Chronic obstructive pulmonary disease. 5. Glaucoma. 6. Dyslipidemia. 7. Degenerative disc disease. 8. BPH. 9. Rectal dysfunction. 10. Eczema. 11. Anxiety. 12 Depression. 13. Legal blindness. 14. Macular degeneration. 15. Schizoaffective disorder. 16. Suspected antisocial disorder. 17. Suspected narcissistic personality disorder. HOSPITAL COURSE: The patient is a 68-year-old man who initially presented with cough and shortness of breath for several days. He did not have any fever, tachycardia, or leukocytosis; however, his history and his chest x-ray revealed dense left basilar infiltrate concerning for community-acquired pneumonia. He was briefly on nasal cannula but improved quite quickly. We did have him on ceftriaxone and azithromycin, which he was improving on. I did see him yesterday, and he stated he was on good improvement then. This morning, I did actually see the patient, and he told me that he was once again having shortness of breath, worse when lying flat. He tells me he follows with Dr. Ortiz. I suggested checking an echocardiogram, giving him a trial of diuresis, continued antibiotic use in order to try and improve his symptoms. He declined offers, insisting that he was trapped and being held prisoner in the hospital. He told me that here he would be unable to shower, drink a cup of coffee, eat breakfast, or smoke a cigarette. I informed him that I would be happy to help him get a cup of coffee and eat breakfast, and he certainly was able to shower. I did offer to provide him a nicotine patch, and he became very angry that those would give him nightmares. He told me that he was frustrated that he was not better already and that he was sick of waiting. I informed him that yesterday he told me he was improving, and I suspected he would continue to improve with time. If he did not improve, we would certainly reassess our treatment regimen, and it may require further testing and time. He was not open to these suggestions and became exceedingly agitated. Greater than 30 minutes was spent inside the patient's room attempting to calm him. He was quite labile and at times did express some depressive symptoms. When I asked him frankly if he was suicidal or if he wanted to speak with a psychiatrist, he told me that he was not suicidal and became very angry at the thought that he may need a psychiatric evaluation. He did demonstrate good understanding of his situation. I informed him that it was in his best interest to remain in the hospital and receive further testing and therapies in order to try and improve his respiratory status, and that going home he would like decline and fail to improve. He was not receptive to these suggestions or interventions and once again became loud and violent, cursing, banging his fists on his tray table, and pushing chairs around the room. It was at this point that I did ask nursing staff to activate a code 25 to ensure the safety of the floor staff. The patient did inform me that he wished to leave the hospital against medical advice. He was provided with the necessary paperwork and did quickly abscond from the floor. He did not allow for me to arrange for any discharge orders. I did send some antibiotics to his pharmacy in order to ensure that he complete his course and made every effort to arrange for as safe a disposition as I could. Patient demonstrated good understanding of the risks and benefits of remaining in the hospital versus leaving the hospital. I do feel he had good capacity and did not pose any suicidal danger to himself, and he did elect to leave the hospital against medical advice. Greater than 45 minutes attempting to arrange as safe a disposition as possible.
--- NOTE | 2018-09-30 13:20 | ECHO ---
DATE OF PROCEDURE: 09/28/2018 AGE: 68 Gender: Male Height 72 inches Weight 170 pounds Body surface area 1.9 meters squared Location: Inpatient, [address] [place] [address], room 5141 REFERRING PHYSICIAN: Dr. Paco Cuenca INDICATIONS: Dyspnea. MEASUREMENTS 2-D MEASUREMENTS: RV - 6.2 cm LV - 7.0 cm Septum 1.3 cm Posterior wall 1.3 cm Aortic root 3.9 cm LA - 5.6 cm LVEF 20% DOPPLER MEASUREMENTS: AV - 0.9 meters per second LVOT - 0.92 meters per second LVOT diameter - 2.4 cm MV-E - 68, A 37, E/A ratio 1.9 Early mitral deceleration time 211 milliseconds E prime 3.1, A prime 4, E/E prime ratio 22 PCWP 15.5 mmHg PV - 0.8 meters per second Pulmonary artery acceleration time 100 milliseconds RVSP 46-51 mmHg COMMENTS: Normal sinus rhythm/sinus bradycardia with left bundle branch block. Somewhat technically challenging study in light of the patient's body habitus but diagnostically useful information was still obtained. M-mode and two-dimensional echocardiography was performed with pulsed, continuous wave, color flow and tissue Doppler studies. Prominently dilated left ventricle with mild eccentric hypertrophy. Septal paradoxical motion with apical akinesis and hypokinesis of other bautista resulting in a severely impaired global resting systolic function. Prominently dilated left atrium with Doppler evidence of an impairment of LV diastolic function with current estimated mean left atrial pressure at least mildly increased. Very prominently dilated right heart chambers with right ventricular free wall hypokinesis and Doppler evidence of at least moderate pulmonary hypertension. Could not visualize his inferior vena cava to further estimate central venous pressure. Slight aortic valvular sclerosis with adequate cusp separation but premature cusp closure in keeping with a reduced forward stroke volume. Mildly thickened mitral annulus but normal leaflet thickness having a "low flow" appearance. No obvious posterior leaflet buckling, but at least moderate mitral insufficiency, likely related to a dilated mitral annulus. Normal-appearing tricuspid valve and at least moderate insufficiency. No apparent intracardiac mass or pericardial effusion. The above findings are consistent with a dilated cardiomyopathy. Unless this patient has a DNR order or is comfort measures only, serious consideration should be made for implantation of a biventricular cardioverter defibrillator with his left bundle branch block and left ventricular dysfunction. MTDD
--- NOTE | 2018-10-01 10:01 | NOCOX ---
DATE OF PROCEDURE: 09/28/2018 Nocturnal oxymetry recording was performed on room air. The patient's initial oxygen saturation was 94%. The patient's oxygen saturations ranged from 100% to the low of 74% with a mean saturation of 94.6%. The time spent with oxygen saturation less than 88% was 11 minutes, 12 seconds. On the recording there was noted some variable desaturation throughout the night with significant pulse ox variability. There was no significant heart rate variability noted. The patient's heart rates appeared to average in the 50s to 60s for most of the night. IMPRESSION: The patient does qualify for nasal cannula oxygen supplementation at night, however, he does have some variability with his pulse oximetry and periodic desaturations, which could be consistent with the diagnosis of sleep apnea. Would consider further evaluation as clinically indicated for sleep disordered breathing. TASHA
== END 2018-09-29 08:05 | disposition left against medical advice (07) | DRG 195 ==
LOC: M ED 13:05 → M ED INP 15:44 → M MS5PR 09-28 11:45
PROVIDERS: ADMIT Internal Medicine; ATTEND Internal Medicine
DX: J18.9 Pneumonia, unspecified organism (principal); I10 Essential (primary) hypertension; E11.9 Type 2 diabetes mellitus without complications; I25.10 Atherosclerotic heart disease of native coronary artery without angina pectoris; I25.2 Old myocardial infarction; J44.9 Chronic obstructive pulmonary disease, unspecified; H40.9 Unspecified glaucoma; E78.5 Hyperlipidemia, unspecified; N40.0 Benign prostatic hyperplasia without lower urinary tract symptoms; N52.9 Male erectile dysfunction, unspecified; F60.81 Narcissistic personality disorder; L30.9 Dermatitis, unspecified; F60.2 Antisocial personality disorder; F25.9 Schizoaffective disorder, unspecified; F41.9 Anxiety disorder, unspecified; F32.9 Major depressive disorder, single episode, unspecified; H35.30 Unspecified macular degeneration; H54.8 Legal blindness, as defined in USA; Z95.1 Presence of aortocoronary bypass graft; Z98.41 Cataract extraction status, right eye; Z98.42 Cataract extraction status, left eye; F17.200 Nicotine dependence, unspecified, uncomplicated; Z79.82 Long term (current) use of aspirin; Z79.1 Long term (current) use of non-steroidal anti-inflammatories (NSAID); Z79.84 Long term (current) use of oral hypoglycemic drugs; Z79.899 Other long term (current) drug therapy; Z88.8 Allergy status to other drugs, medicaments and biological substances

== ENCOUNTER 2018-11-10 05:04 | Inpatient (IN) | payer MEDICARE, MEDICAID ==
[~2018-11-10] VITALS: Ht 182.9 cm; Wt 86.0 kg
[~2018-11-10 05:04] MED LIST changes: +AMOX875T2 PO; +AZIT500T2 PO; +BETI1SOL OS; +CEFD300CAP PO; +GABA-843; +MELO15TA28 PO; +NITR0.4S14 SL
[2018-11-10] MEDS ORDERED: GLIP10TA18 PO (05:24)
[2018-11-10] MEDS ORDERED: PROAAER10 INH (05:24)
[2018-11-10] MEDS ORDERED: GABA-843 PO (05:24)
[2018-11-10 05:34] LABS: BASO # 0.1 10^3/uL (0.0-0.2); BASO % 0.5 % (0.0-1.0); EOS # 0.4 10^3/uL (0.0-0.50); HEMATOCRIT 33.2 % (42.0-52.0); LYMPH # 1.4 10^3/uL (1.5-4.5); LYMPH % 14.6 % (24.0-44.0); MEAN CORPUSCULAR HEMOGLOBIN 23.1 pg (27.0-33.0); MEAN CORPUSCULAR HGB CONC 30.1 g/dl (32.0-36.5); MEAN CORPUSCULAR VOLUME 76.9 fl (80.0-96.0); MONO % 10.4 % (0.0-5.0); NEUTROPHILS # 6.5 10^3/uL (1.8-7.7); NEUTROPHILS % 70.1 % (36.0-66.0); PLATELET COUNT, AUTOMATED 188 10^3/uL (150-450); RED BLOOD COUNT 4.32 10^6/uL (4.30-6.10); WHITE BLOOD COUNT 9.2 10^3/uL (4.0-10.0)
[2018-11-10 05:55] LABS: BLOOD UREA NITROGEN 23 MG/DL (7-18); CALCIUM LEVEL 8.1 MG/DL (8.8-10.2); CARBON DIOXIDE LEVEL 23 MEQ/L (21-32); CHLORIDE LEVEL 109 MEQ/L (98-107); CREATININE FOR GFR 0.94 MG/DL (0.70-1.30); GLOMERULAR FILTRATION RATE > 60.0 (>42); GLUCOSE, FASTING 103 MG/DL (70-100); POTASSIUM SERUM 4.1 MEQ/L (3.5-5.1); SODIUM LEVEL 140 MEQ/L (136-145)
[2018-11-10 06:08] LABS: INFLUENZA A AMPLIFICATION NEGATIVE (NEGATIVE); INFLUENZA B AMPLIFICATION NEGATIVE (NEGATIVE)
--- NOTE | 2018-11-10 07:38 | ECGEPIP ---
Stationary ECG Study [facility] - ED Test Date: 2018-11-10 Pat Name: RIC ORTIZ Department: Room: - Gender: M [employer] Developer: : [id number] Requested By: AMADA WALSH Order Number: [id number] Reading MD: Kyle Ivory Measurements Intervals Corn Rate: 58 P: 12 NV: 189 QRS: 14 QRSD: 144 T: 265 QT: 496 QTc: 488 Interpretive Statements SINUS BRADYCARDIA POSSIBLE LEFT ATRIAL ENLARGEMENT PRIOR INFERIOR INFARCT POOR R WAVE PROGRESSION LEFT BUNDLE BRANCH BLOCK SIMILAR TO 09/27/18 Electronically Signed On 11-10-2018 7:37:57 EDT by Kyle Ivory
[2018-11-10] MEDS ORDERED: FUROSEMIDE 100 MG/10 ML VIAL (J1940) IV ONE (08:30)
[2018-11-10 08:33] LABS: INR 1.24; PROTHROMBIN TIME 15.8 SECONDS (12.1-14.4)
[2018-11-10 08:43] LABS: ALBUMIN 3.3 GM/DL (3.2-5.2); ALT/SGPT 38 U/L (12-78); BILIRUBIN,DIRECT 0.3 MG/DL (0.0-0.2); BILIRUBIN,TOTAL 0.7 MG/DL (0.2-1.0); CPK CREATINE PHOSPHOKINASE 80 U/L (39-308); MB/CK RELATIVE INDEX 2.75 (< OR =4); NT-PRO BNP 18169 PG/ML (<125); TOTAL PROTEIN 6.1 GM/DL (6.4-8.2); TROPONIN I 0.03 NG/ML (< 0.10)
--- NOTE | 2018-11-10 11:06 | REP ---
PORTABLE CHEST: AP portable view of the chest is performed and compared to a prior study of 09/27/2018. There is cardiomegaly. There is again parenchymal opacity in the left base which appears similar to the prior study compatible with infiltrate. I also suspect a small mild to moderate left effusion. No definite infiltrate is seen in the right lung. There are multiple sternal wires and mediastinal clips present. There is calcification of the thoracic aorta. IMPRESSION: There appears to be significant cardiomegaly. Left basilar infiltrate is again seen, similar to the prior study. I also suspect a mild to moderate left effusion. Electronically Signed by Kee Lopez MD 11/10/2018 06:57 P
[2018-11-10] MEDS: FUROSEMIDE 40 MG/4 ML VIAL (J1940) IV SCH ×3 (11:56→20:24)
[2018-11-10] MEDS ORDERED: ALBUTEROL 90 MCG/ACT 8GM HFA INHALER INH PRN (13:00)
[2018-11-10] MEDS ORDERED: QUEtiapine FUMARATE 25 MG TAB PO ONE ×2 (13:00)
[2018-11-10] MEDS: QUEtiapine FUMARATE 25 MG TAB PO ONE ×2 (13:12→13:15)
[2018-11-10] MEDS ORDERED: IPRATROPIUM 0.5MG/ALBUTEROL 2.5MG INH SOL UD 3ML (DUONEB)(J7620) NEB ONE (13:15)
[2018-11-10] MEDS ORDERED: IPRATROPIUM 0.5MG/ALBUTEROL 2.5MG INH SOL UD 3ML (DUONEB)(J7620) NEB PRN (13:15)
[2018-11-10] MEDS ORDERED: GLUCOSE 4 GM CHEW TABLET PO PRN (13:15)
[2018-11-10] MEDS ORDERED: GLUCAGON FOR INJ 1 MG VIAL (J1610) SC PRN (13:15)
[2018-11-10] MEDS ORDERED: DEXTROSE 50% 50 ML SYRINGE IV PRN (13:15)
[2018-11-10] MEDS: ISOSORBIDE MON. (IMDUR) 30 MG XR TAB PO SCH (14:13)
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
[2018-11-10] MEDS: cefTRIAXone SOD 2 GM in D5W MINI-BAG PLUS 50 ML IV SCH (15:25)
[2018-11-10] MEDS: HumaLOG INSULIN (NovoLOG) PER UNIT SC SCH ×2 (18:23→20:17)
[2018-11-10 18:46] VITALS: BP 173/98
[2018-11-10] MEDS ORDERED: SLF 3 ML SYR IV PRN (19:00)
[2018-11-10 20:00] VITALS: BP 130/79
[2018-11-10] MEDS: METOPROLOL SUCC (TopROL XL) 100MG *XL* TAB PO SCH (20:16)
[2018-11-10] MEDS: SLF 3 ML SYR IV SCH (20:24)
--- NOTE | 2018-11-10 20:28 | IPNPDOC ---
Date Seen The patient was seen on 11/10/18. Progress Note CLARIFICATION OF CODE STATUS: DO NOT RESUSCITATE, DO NOT INTUBATE. Patient understands that his medical condition of Advanced SYSTOLIC CHF with EF 20% is terminal without AICD/biventricular pacer, but wants treatment for this in the form of temporizing measures like lasix so "I can feel better, and go home." He is willing to take oral lasix at home to keep his symptoms at bay, but does now want a referral to a hotshot superintendent, be sent to [facility] of AICD evaluation. He wanted to go home against medical advice because he does not want to stay in the hospital. He wanted to return to the ER if the symptoms were persistent at home. He requested PFS to discuss options with him as he knows he cannot be alone much longer, and requiring more and more assistance as his eyesight worsens. He wants to be treated for his medical conditions up to the point of AICD, biventricular pacer, and cardiology mgt of his CHF. However, due to SEVERE DEPRESSION from knowing that he has ADVANCED CHF that is terminal without an AICD, and impending blindness from his glaucoma, He told the ER social services counselor,"sometimes when I see the railroad tracks, I just want to lie there and be run over by a train." and more disturbingly, "I have rope at home that I can hang myself with." He has therefore, been held against his will, due to SUICIDALITY due to severe depression from his chronic terminal advanced CHF. Assessment: Mental capacity: -Pt exhibited the ability to recognize the pros and cons of treatment for CHF. -"I will take the pills to make my breathing better." -" My pharmacist puts different pills in different packages so I know which medicine is which." -" I want to talk to a social services counselor to see how I can get help at home. " -"My phone doesn't work sometimes, so I am okay with someone knocking at my door and checking up on me. " -"I need help and I want to know what options there are for me,but I don't want to stay in the hospital overnight. Just send someone to my house." -"I'll come back if the pills don't help and I can't breathe again. I just don't want to stay in the hospital for days." -Despite his poor judgement of refusing acute inpatient care for decompensated CHF: (1)a referral to a hotshot superintendent for acute inpatient management, (2)Defibrillator vest at hospital discharge, (3) AICD/Biventricular pacer evaluation in [facility], (4) and 3 month cardiology medical optimization of his CHF,prior to AICD / BiV pacer placement which are the definitive treatments for his advanced systolic CHF . he shows understanding that he will have recurrent symptoms of CHF, can from VFIB if he does NOT have an AICD or defibrillator vest because "this is me. I decide wha t we do." Severe Depression: -in the setting of a terminal condition of advanced CHF EF 20% AND risk of sudden due to VFIB,VTACH. -despite Suicidal ideation, pt was ADAMANT that if he were to pass naturally and his heart stops, He does NOT want chest compressions, "electricity" Defibrillation, or "don't put me on a machine" intubation with mechanical ventilation. -Psychiatrist consulted Suicidal Ideation/Plan: -He is held against his will because he suffers from severe depression stemming from his understanding of his terminal advanced CHF. -He is in danger of harming himself by making these statements. -Psychiatrist Dr. Quan has been consulted. Terminal Advanced CHF EF 20% -"This is me. I decide what we do." -Pt has asked for options for him as he knows he cannot live alone anymore. -He adamantly refuses to go to his doctors, have a cardiology referral, or "any operations." -He is appropriate for [employer] once he is cleared of his suicidality. -Without an AICD/Biventricular pacer, strict compliance with a hotshot superintendent, his SEVERE CHF is terminal due to risk of Vtach/VFib/Sudden . CODE STATUS: Patient is to be treated medically for all acute medical conditions up to the point when his heart stops or he stops breathing. He is ADAMANTLY opposed to pursuing AICD placement,cardiology referral and mgt of his advanced heart condition. DNR/DNI will only take effect once he has no heart beat or no spontaneous breathing. VS, I&O, 24H, Fishbone Vital Signs/I&O Vital Signs Date Time Temp Pulse Resp B/P (MAP) Pulse Ox O2 Delivery O2 Flow Rate FiO2 11/10/18 18:46 97.9 75 22 173/98 (123) 96 11/10/18 15:23 Room Air 11/10/18 09:15 2.0 Laboratory Data 24H LABS Laboratory Tests 2 11/10/18 05:25: Immature Granulocyte % (Auto) 0.4, White Blood Count 9.2, Red Blood Count 4.32, Hemoglobin 10.0L, Hematocrit 33.2L, Mean Corpuscular Volume 76.9L, Mean Corpuscular Hemoglobin 23.1L, Mean Corpuscular Hemoglobin Concent 30.1L, Red Cell Distribution Width 16.2H, Platelet Count 188, Neutrophils (%) (Auto) 70.1H, Lymphocytes (%) (Auto) 14.6L, Monocytes (%) (Auto) 10.4H, Eosinophils (%) (Auto) 4.0H, Basophils (%) (Auto) 0.5, Neutrophils # (Auto) 6.5, Lymphocytes # (Auto) 1.4L, Monocytes # (Auto) 1.0H, Eosinophils # (Auto) 0.4, Basophils # (Auto) 0.1, Nucleated Red Blood Cells % (auto) 0.0, Prothrombin Time 15.8H, Prothromb Time International Ratio 1.24, Anion Gap 8, Glomerular Filtration Rate > 60.0, Calcium Level 8.1L, Aspartate Amino Transf (AST/SGOT) 21, Alanine Aminotransferase (ALT/SGPT) 38, Alkaline Phosphatase 85, Total Bilirubin 0.7, Direct Bilirubin 0.3H, Total Creatine Kinase 80, Creatine Kinase MB 2.0, Creatine Kinase MB Relative Index 2.75, Troponin I 0.03, OZ-Hfy-N-Type Natriuretic Peptide 44796W, Total Protein 6.1L, Albumin 3.3, Albumin/Globulin Ratio 1.18 11/10/18 05:31: Influenza Type A (RT-PCR) NEGATIVE, Influenza Type B (RT-PCR) NEGATIVE 11/10/18 18:20: Bedside Glucose (Misc Panel) 124H CBC/BMP Laboratory Tests 11/10/18 05:25 Red Blood Count 4.32, Mean Corpuscular Volume 76.9 L, Mean Corpuscular Hemoglobin 23.1 L, Mean Corpuscular Hemoglobin Concent 30.1 L, Red Cell Distribution Width 16.2 H, Neutrophils (%) (Auto) 70.1 H, Lymphocytes (%) (Auto) 14.6 L, Monocytes (%) (Auto) 10.4 H, Eosinophils (%) (Auto) 4.0 H, Basophils (%) (Auto) 0.5, Neutrophils # (Auto) 6.5, Lymphocytes # (Auto) 1.4 L, Monocytes # (Auto) 1.0 H, Eosinophils # (Auto) 0.4, Basophils # (Auto) 0.1, Calcium Level 8.1 L GURU BUTLER MD Nov 10, 2018 20:28
[2018-11-10] MEDS: TIMOLOL MALEATE 0.25% OPHTH SOLN 5 ML OS SCH (20:32)
[2018-11-10] MEDS: BRIMONIDINE 0.1% OPHTH SOLN 5 ML OS SCH (20:32)
[2018-11-10] MEDS ORDERED: ONDANSETRON 4 MG TAB (S0181) PO PRN (21:00)
[2018-11-10] MEDS ORDERED: QUEtiapine FUMARATE 12.5 MG HALF-TAB PO ONE (21:00)
[2018-11-10] MEDS: QUEtiapine FUMARATE 50 MG TAB PO SCH (21:27)
[2018-11-10 21:34] LABS: BLOOD UREA NITROGEN 24 MG/DL (7-18); CALCIUM LEVEL 8.8 MG/DL (8.8-10.2); CARBON DIOXIDE LEVEL 27 MEQ/L (21-32); CHLORIDE LEVEL 106 MEQ/L (98-107); CPK CREATINE PHOSPHOKINASE 86 U/L (39-308); CREATININE FOR GFR 0.98 MG/DL (0.70-1.30); GLOMERULAR FILTRATION RATE > 60.0 (>42); GLUCOSE, FASTING 100 MG/DL (70-100); MAGNESIUM LEVEL 1.6 MG/DL (1.8-2.4); MB/CK RELATIVE INDEX 2.21 (< OR =4); POTASSIUM SERUM 3.9 MEQ/L (3.5-5.1); SODIUM LEVEL 142 MEQ/L (136-145); TROPONIN I 0.02 NG/ML (< 0.10)
[2018-11-11] VITALS (7 sets, daily range): BP systolic 102–144; BP diastolic 62–74
[2018-11-11] MEDS: FUROSEMIDE 40 MG/4 ML VIAL (J1940) IV SCH ×7 (00:07→23:53)
[2018-11-11] MEDS: SLF 3 ML SYR IV SCH ×3 (03:57→21:33)
[2018-11-11 05:51] LABS: BASO % 0.4 % (0.0-1.0); EOS # 0.3 10^3/uL (0.0-0.50); EOS % 4.6 % (0.0-3.0); HEMATOCRIT 31.6 % (42.0-52.0); HEMOGLOBIN 9.9 g/dl (13.5-17.5); LYMPH # 0.8 10^3/uL (1.5-4.5); LYMPH % 10.3 % (24.0-44.0); MEAN CORPUSCULAR HEMOGLOBIN 23.1 pg (27.0-33.0); MEAN CORPUSCULAR HGB CONC 31.3 g/dl (32.0-36.5); MEAN CORPUSCULAR VOLUME 73.7 fl (80.0-96.0); MONO # 0.5 10^3/uL (0.0-0.8); MONO % 6.3 % (0.0-5.0); NEUTROPHILS # 5.8 10^3/uL (1.8-7.7); NEUTROPHILS % 78.1 % (36.0-66.0); PLATELET COUNT, AUTOMATED 174 10^3/uL (150-450); RED BLOOD COUNT 4.29 10^6/uL (4.30-6.10); WHITE BLOOD COUNT 7.4 10^3/uL (4.0-10.0)
[2018-11-11 06:26] LABS: BLOOD UREA NITROGEN 21 MG/DL (7-18); CALCIUM LEVEL 8.5 MG/DL (8.8-10.2); CARBON DIOXIDE LEVEL 31 MEQ/L (21-32); CHLORIDE LEVEL 102 MEQ/L (98-107); CPK CREATINE PHOSPHOKINASE 64 U/L (39-308); GLOMERULAR FILTRATION RATE > 60.0 (>42); GLUCOSE, FASTING 87 MG/DL (70-100); MAGNESIUM LEVEL 1.6 MG/DL (1.8-2.4); MB/CK RELATIVE INDEX 1.72 (< OR =4); POTASSIUM SERUM 3.4 MEQ/L (3.5-5.1); SODIUM LEVEL 140 MEQ/L (136-145); TROPONIN I 0.03 NG/ML (< 0.10)
[2018-11-11] MEDS: HumaLOG INSULIN (NovoLOG) PER UNIT SC SCH ×4 (07:30→21:00)
[2018-11-11] MEDS ORDERED: POTASSIUM CHLORIDE 10 MEQ SR TABLET PO ONE (08:30)
[2018-11-11 08:43] LABS: NT-PRO BNP 12348 PG/ML (<125)
[2018-11-11] MEDS: METOPROLOL SUCC (TopROL XL) 100MG *XL* TAB PO SCH ×2 (09:00→21:00)
[2018-11-11] MEDS: ISOSORBIDE MON. (IMDUR) 30 MG XR TAB PO SCH ×2 (09:00→09:46)
[2018-11-11] MEDS ORDERED: GABAPENTIN 300 MG CAP PO SCH (09:00)
[2018-11-11] MEDS: MAG SULF 1GM/100ML (MAG RUN) 1 GM in APPROPRIATE DILUENT 1 EA IV SCH ×2 (09:30→09:47)
[2018-11-11] MEDS: ATORVASTATIN 20 MG TAB PO SCH (09:46)
[2018-11-11] MEDS: ASPIRIN 81 MG ENTERIC TAB PO SCH (09:46)
--- NOTE | 2018-11-11 11:04 | REP ---
PORTABLE CHEST: AP portable view of the chest is performed and compared to a prior study of 11/10/2018. There is again cardiomegaly with vascular congestion and diffuse interstitial edema appearing similar to the prior exam. Dense left infiltrate and left effusion are unchanged. There is some calcification of the thoracic aorta. The mediastinal silhouette is unchanged. Multiple sternal wires and mediastinal clips are present. IMPRESSION: Stable findings of CHF with interstitial edema, left basilar infiltrate and effusion. Electronically Signed by Kee Lopez MD 11/11/2018 05:44 P
[2018-11-11 12:28] LABS: MB/CK RELATIVE INDEX 1.75 (< OR =4); TROPONIN I 0.03 NG/ML (< 0.10)
[2018-11-11] MEDS ORDERED: MAG SULF 1GM/100ML (MAG RUN) 1 GM in APPROPRIATE DILUENT 1 EA IV ONE (13:00)
--- NOTE | 2018-11-11 13:47 | IPNPDOC ---
Date Seen The patient was seen on 11/11/18. Progress Note SUBJECTIVE: Pt's sob has resolved. He remains in net negative balance and says, "I want lasix to help me breathe, but that's all." Tele: NSVT. with his RN Katelyn at the bedside, pt signed DNR/DNI. He refuses to see a collision technician for CHF, be evaluated for AICD/Biventricular pacer, and just "want to go home and live in my own terms." Pt says, "I said I have a rope to the psychiatric social worker in the ER," and then "she told you I want to hang myself." "I was being flippant. I was being facetious." He is agreeable to [facility] [employer] and hospice that can provide 24/7 care. OBJECTIVE: PHYSICAL EXAMINATION: VITAL SIGNS: PLS SEE BELOW GENERAL: The patient is very agitated about being held due to suicidal statements. He appears older than his stated age. He is legally blind. He has some exudates noted in bilateral eyes. Pupils are reactive. Positive jugular venous distention (JVD). No thyromegaly. No cervical lymphadenopathy. HEART: S1, S2. Sinus rhythm with bradycardic episodes. S3 is noted with hyperdynamic impulse in the apex, as well as early systolic murmur noted in the left sternal border. LUNGS: Diminished breath sounds with rales at the left base. ABDOMEN: Soft, nontender, nondistended. Positive bowel sounds. No rebound or guarding. No splenomegaly. EXTREMITIES: No cyanosis or clubbing. Positive pitting edema. LAB DATA, IMAGING: PLS SEE BELOW ASSESSMENT AND PLAN: The patient is a 68-year-old male with a past medical history significant for systolic congestive heart failure (CHF) with ejection fraction of 20%, DO NOT RESUSCITATE, DO NOT INTUBATE, does not follow with a collision technician and has refused further evaluation and defibrillator or biventricular pacer placement. He has schizoaffective disorder, antisocial behavior, suspected narcissistic personality disorder with multiple admissions to inpatient mental health unit for agitation, as well as being sexually preoccupied and inappropriate and previously incarcerated for rape in the past, hypertension, coronary artery disease, [id number] diabetes mellitus, chronic obstructive pulmonary disease (COPD), glaucoma, legally blind, dyslipidemia, benign prostatic hypertrophy (BPH), eczema, anxiety, depression, macular degeneration, who presents to the emergency room with several day history of worsening shortness of breath, worsened in the past 24 hours with inability to ambulate due to dyspnea. The patient denies any chest pain, pressure or tightness. No fever or chills. Has had a dry cough. No sick contacts. The patient denies nausea or vomiting, dysuria, urgency, frequency, chills or flank pain. Denies bright red blood per rectum, melena, hematemesis, black/tarry stools at home. The patient lives alone and realizes that he needs help. He has been noncompliant with hospital admissions, signing out against medical advice in the past, as well as not following up with his collision technician and primary care provider appointments. In the emergency room, he was found to be in congestive heart failure (CHF). Chest x-ray shows bilateral pulmonary edema. Electrocardiogram (EKG) was unchanged showing an abnormal EKG with sinus bradycardia, rate of 58, left atrial enlargement, poor R wave progression and chronic left bundle branch block. Hospitalist was called to admit. The patient was initially agreeable to staying in the hospital for heart failure management. Upon admission interview, the patient has decided to leave against medical advice and when psychiatric social worker was contacted, the patient had mentioned that he was suicidal, he would go home and use a rope to tie around his neck and kill himself with suicidal thoughts of lying down on a railroad track and have the train kill him. The patient initially had mental capacity and was able to sign himself out against medical advice, he says that if he were to have more trouble breathing that he would come into the emergency room and he will take his medications as the pharmacy is able to put his medications under different packaging so he can tell which medication is which. The patient was asking for social work to help with home services, as well as assisted living if possible. He was very explicit about how he would seek help in case his breathing worsened. He also mentioned that should he naturally that he would not want to be resuscitated and did not want any cardiopulmonary resuscitation (CPR), chest compressions, defibrillation, and that he would not want to be intubated and placed on ventilation. He states that he has no family, no children, no , no relatives in the area and that he has one friend who has schizophrenia that he does not trust to make medical decisions for him. Currently, the patient does not have a healthcare proxy, and since making suicidal statements, he is now held against his will to be admitted into the hospital. The patient is noncompliant with his medications, medical treatments, does not keep an eye on his salt intake, usually eats out. He complains of paroxysmal nocturnal dyspnea, orthopnea, unable to sleep lying down and with 2 to 3 feet dyspnea on exertion. He does not weigh himself and is not aware of what his baseline dry weight is. Acute systolic congestive heart failure (CHF) with ejection fraction of 20%. The patient is refusing further workup. Cardiology referral as well as cardiology management of his acute issues. He is refusing evaluation for a defibrillator and biventricular pacer to improve his cardiac output. He was not agreeable to staying for congestive heart failure (CHF) management and was adamant about leaving against medical advice until he made suicidal statements, at which point he is now held against his will and legally kept in the hospital. Psychiatrist has been consulted. He is currently kept on strict input and output, daily weights, fluid restriction of 2 liters, Lasix 200 mg IV every 4 hours. KANG inhibitors and beta blockers will be restarted once he is euvolemic. Trigger is medical and dietary noncompliance, as well as possible infection in the left basal area with pneumonia. Community acquired left lower lobe pneumonia. The patient will be given ceftriaxone for now, as well as sputum culture will be obtained, urine legionella, and blood cultures if the patient will permit us to take extra blood. We will check urine for legionella and urine strep antigen. History of coronary artery disease, status post coronary artery bypass graft (CABG) in the past. The patient does not want to follow with a collision technician, refusing cardiology referral, does not want to be evaluated further for a defibrillator or biventricular pacer due to severe systolic dysfunction. He is currently of sound mind and is able to state the complications of not following medical advise. We will resume the patient's aspirin and metoprolol with holding parameters. KANG inhibitor to be started once the patient is euvolemic and blood pressure permits. Continue on isosorbide. Hypertension. Continue on isosorbide and metoprolol. Hyperlipidemia. Continue on atorvastatin. History of cataract surgery and history of macular degeneration. Continue with home eye drops. Type 2 diabetes. Hold the patient 's metformin in light of acute decompensated CHF. Sliding scale with consistent carbohydrate diet. Deep vein thrombosis (DVT) prophylaxis with Lovenox. CODE STATUS: The patient is DO NOT RESUSCITATE, DO NOT INTUBATE. He does not have a healthcare proxy and patient and family services (PFS) has been consulted. CLARIFICATION OF CODE STATUS: DO NOT RESUSCITATE, DO NOT INTUBATE. Patient understands that his medical condition of Advanced SYSTOLIC CHF with EF 20% is terminal without AICD/biventricular pacer, but wants treatment for this in the form of temporizing measures like lasix so "I can feel better, and go home." He is willing to take oral lasix at home to keep his symptoms at bay, but does now want a referral to a collision technician, be sent to [facility] of AICD evaluation. He wanted to go home against medical advice because he does not want to stay in the hospital. He wanted to return to the ER if the symptoms were persistent at home. He requested [facility] to discuss options with him as he knows he cannot be alone much longer, and requiring more and more assistance as his eyesight worsens. He wants to be treated for his medical conditions up to the point of AICD, biventricular pacer, and cardiology mgt of his CHF. However, due to SEVERE DEPRESSION from knowing that he has ADVANCED CHF that is terminal without an AICD, and impending blindness from his glaucoma, He told the ER psychiatric social worker,"sometimes when I see the railroad tracks, I just want to lie there and be run over by a train." and more disturbingly, "I have rope at home that I can hang myself with." He has therefore, been held against his will, due to SUICIDALITY due to severe depression from his chronic terminal advanced CHF. Assessment: Mental capacity: -Pt exhibited the ability to recognize the pros and cons of treatment for CHF. -"I will take the pills to make my breathing better." -" My pharmacist puts different pills in different packages so I know which medicine is which." -" I want to talk to a psychiatric social worker to see how I can get help at home. " -"My phone doesn't work sometimes, so I am okay with someone knocking at my door and checking up on me. " -"I need help and I want to know what options there are for me,but I don't want to stay in the hospital overnight. Just send someone to my house." -"I'll come back if the pills don't help and I can't breathe again. I just don't want to stay in the hospital for days." -Despite his poor judgement of refusing acute inpatient care for decompensated CHF: (1)a referral to a collision technician for acute inpatient management, (2)Defibrillator vest at hospital discharge, (3) AICD/Biventricular pacer evaluation in [facility], (4) and 3 month cardiology medical optimization of his CHF,prior to AICD / BiV pacer placement which are the definitive treatments for his advanced systolic CHF . he shows understanding that he will have recurrent symptoms of CHF, can from VFIB if he does NOT have an AICD or defibrillator vest because "this is me. I decide what we do." Severe Depression: -in the setting of a terminal condition of advanced CHF EF 20% AND risk of sudden due to VFIB,VTACH. -despite Suicidal ideation, pt was ADAMANT that if he were to pass naturally and his heart stops, He does NOT want chest compressions, "electricity" Defibrillation, or "don't put me on a machine" intubation with mechanical ventilation. -Psychiatrist consulted Suicidal Ideation/Plan: -He is held against his will because he suffers from severe depression stemming from his understanding of his terminal advanced CHF. -He is in danger of harming himself by making these statements. -Psychiatrist Dr. Quan has been consulted. Terminal Advanced CHF EF 20% -"This is me. I decide what we do." -Pt has asked for options for him as he knows he cannot live alone anymore. -He adamantly refuses to go to his doctors, have a cardiology referral, or "any operations." -He is appropriate for [facility] [employer] once he is cleared of his suicidality. -Without an AICD/Biventricular pacer, strict compliance with a collision technician, his SEVERE CHF is terminal due to risk of Vtach/VFib/Sudden . CODE STATUS: Patient is to be treated medically for all acute medical conditions up to the point when his heart stops or he stops breathing. He is ADAMANTLY opposed to pursuing AICD placement,cardiology referral and mgt of his advanced heart condition. DNR/DNI will only take effect once he has no heart beat or no spontaneous breathing. VS[facility] I&O[facility]&O Vital Signs Date Time Temp Pulse Resp B/P (MAP) Pulse Ox O2 Delivery O2 Flow Rate FiO2 11/11/18 09:00 77 111/62 11/11/18 08:00 2.0 11/11/18 08:00 97.6 19 94 11/10/18 15:23 Room Air I&O- Last 24 Hours up to 6 AM 11/11/18 06:00 Intake Total 420 ml Output Total 5650 ml Balance -5230 ml Laboratory Data 24H LABS Laboratory Tests 2 11/10/18 18:20: Bedside Glucose (Misc Panel) 124H 11/10/18 20:56: Anion Gap 9, Glomerular Filtration Rate > 60.0, Blood Urea Nitrogen 24H, Creatinine 0.98, Sodium Level 142, Potassium Level 3.9, Chloride Level 106, Carbon Dioxide Level 27, Calcium Level 8.8, Total Creatine Kinase 86, Magnesium Level 1.6L, Creatine Kinase MB 2.0, Creatine Kinase MB Relative Index 2.21, Troponin I 0.02# 11/11/18 05:06: Anion Gap 7L, Glomerular Filtration Rate > 60.0, Blood Urea Nitrogen 21H, Creatinine 0.80, Sodium Level 140, Potassium Level 3.4L, Chloride Level 102, Carbon Dioxide Level 31, Calcium Level 8.5L, Total Creatine Kinase 64, Magnesium Level 1.6L, Creatine Kinase MB 1.0, Creatine Kinase MB Relative Index 1.72, Troponin I 0.03#, Immature Granulocyte % (Auto) 0.3, White Blood Count 7.4, Red Blood Count 4.29L, Hemoglobin 9.9L, Hematocrit 31.6L, Mean Corpuscular Volume 73.7L, Mean Corpuscular Hemoglobin 23.1L, Mean Corpuscular Hemoglobin Concent 31.3L, Red Cell Distribution Width 16.0H, Platelet Count 174, Neutrophils (%) (Auto) 78.1H, Lymphocytes (%) (Auto) 10.3L, Monocytes (%) (Auto) 6.3H, Eosinophils (%) (Auto) 4.6H, Basophils (%) (Auto) 0.4, Neutrophils # (Auto) 5.8, Lymphocytes # (Auto) 0.8L, Monocytes # (Auto) 0.5, Eosinophils # (Auto) 0.3, Basophils # (Auto) 0.0, Nucleated Red Blood Cells % (auto) 0.0, [id number] Natriuretic Peptide [id number] 11/11/18 11:49: Total Creatine Kinase 57, Creatine Kinase MB 1.0, Creatine Kinase MB Relative Index 1.75, Troponin I 0.03 11/11/18 12:18: Bedside Glucose (Misc Panel) 142H CBC/BMP Laboratory Tests 11/10/18 20:56 Calcium Level 8.8, Total Creatine Kinase 86 11/11/18 05:06 Calcium Level 8.5 L, Total Creatine Kinase 64, Red Blood Count 4.29 L, Mean Corpuscular Volume 73.7 L, Mean Corpuscular Hemoglobin 23.1 L, Mean Corpuscular Hemoglobin Concent 31.3 L, Red Cell Distribution Width 16.0 H, Neutrophils (%) (Auto) 78.1 H, Lymphocytes (%) (Auto) 10.3 L, Monocytes (%) (Auto) 6.3 H, Eosin ophils (%) (Auto) 4.6 H, Basophils (%) (Auto) 0.4, Neutrophils # (Auto) 5.8, Lymphocytes # (Auto) 0.8 L, Monocytes # (Auto) 0.5, Eosinophils # (Auto) 0.3, Basophils # (Auto) 0.0 GURU BUTLER MD Nov 11, 2018 13:46
[2018-11-11] MEDS ORDERED: ALPRAZolam 0.5 MG TAB PO PRN (14:00)
[2018-11-11] MEDS ORDERED: ALPRAZolam 0.5 MG TAB PO ONE (14:15)
[2018-11-11] MEDS: cefTRIAXone SOD 2 GM in D5W MINI-BAG PLUS 50 ML IV SCH (15:00)
[2018-11-11] MEDS: MELOXICAM (MOBIC) 7.5 MG TAB PO SCH (17:21)
[2018-11-11 18:32] LABS: BLOOD UREA NITROGEN 18 MG/DL (7-18); CALCIUM LEVEL 7.8 MG/DL (8.8-10.2); CARBON DIOXIDE LEVEL 29 MEQ/L (21-32); CHLORIDE LEVEL 105 MEQ/L (98-107); CREATININE FOR GFR 0.91 MG/DL (0.70-1.30); GLOMERULAR FILTRATION RATE > 60.0 (>42); GLUCOSE, FASTING 130 MG/DL (70-100); SODIUM LEVEL 140 MEQ/L (136-145)
[2018-11-11] MEDS: TIMOLOL MALEATE 0.25% OPHTH SOLN 5 ML OS SCH (21:00)
[2018-11-11] MEDS: BRIMONIDINE 0.1% OPHTH SOLN 5 ML OS SCH (21:00)
[2018-11-11] MEDS: QUEtiapine FUMARATE 50 MG TAB PO SCH (21:00)
[2018-11-12] MEDS ORDERED: ACETAMINOPHEN TAB 650MG DOSE (2X325MG) PO ONE (01:30)
[2018-11-12 04:00] VITALS: BP 135/74
[2018-11-12] MEDS: FUROSEMIDE 40 MG/4 ML VIAL (J1940) IV SCH ×3 (04:00→12:00)
[2018-11-12 05:08] LABS: BASO % 0.3 % (0.0-1.0); EOS # 0.5 10^3/uL (0.0-0.50); EOS % 7.2 % (0.0-3.0); HEMATOCRIT 31.2 % (42.0-52.0); HEMOGLOBIN 9.7 g/dl (13.5-17.5); LYMPH # 0.9 10^3/uL (1.5-4.5); LYMPH % 13.2 % (24.0-44.0); MEAN CORPUSCULAR HEMOGLOBIN 23.2 pg (27.0-33.0); MEAN CORPUSCULAR HGB CONC 31.1 g/dl (32.0-36.5); MEAN CORPUSCULAR VOLUME 74.6 fl (80.0-96.0); MONO # 0.8 10^3/uL (0.0-0.8); MONO % 11.1 % (0.0-5.0); NEUTROPHILS # 4.7 10^3/uL (1.8-7.7); NEUTROPHILS % 68.1 % (36.0-66.0); PLATELET COUNT, AUTOMATED 171 10^3/uL (150-450); RED BLOOD COUNT 4.18 10^6/uL (4.30-6.10)
[2018-11-12 05:27] LABS: BLOOD UREA NITROGEN 17 MG/DL (7-18); CALCIUM LEVEL 8.3 MG/DL (8.8-10.2); CARBON DIOXIDE LEVEL 32 MEQ/L (21-32); CHLORIDE LEVEL 105 MEQ/L (98-107); CREATININE FOR GFR 0.83 MG/DL (0.70-1.30); GLOMERULAR FILTRATION RATE > 60.0 (>42); GLUCOSE, FASTING 127 MG/DL (70-100); MAGNESIUM LEVEL 1.9 MG/DL (1.8-2.4); POTASSIUM SERUM 4.1 MEQ/L (3.5-5.1); SODIUM LEVEL 142 MEQ/L (136-145)
[2018-11-12] MEDS: SLF 3 ML SYR IV SCH ×2 (06:00→13:34)
[2018-11-12] MEDS: HumaLOG INSULIN (NovoLOG) PER UNIT SC SCH ×2 (07:30→12:00)
[2018-11-12] MEDS ORDERED: LASI40TA9 PO (07:51)
[2018-11-12] MEDS ORDERED: ALPRAZolam 0.5 MG TAB PO ONE (08:00)
[2018-11-12] MEDS ORDERED: CEFD1CAP8 PO (08:01)
[2018-11-12] MEDS ORDERED: BACI1CAP PO (08:01)
--- NOTE | 2018-11-12 08:27 | DS.PDOC ---
Discharge Summary General Date of Admission Nov 10, 2018 at 09:14 Date of Discharge Nov 12, 2018 Discharge Summary PSYCHIATRIST: DR. PABLO QUAN CODE STATUS: DO NOT RESUSCITATE, DO NOT INTUBATE DISCHARGE DIAGNOSES: Community Acquired Pneumonia Acute Systolic CHF Exacerbation EF 25% , refused AICD/Biventricular pace/cardiology referral Severe Depression Suicidal Ideation, cleared for discharge by Psychiatrist DISCHARGE MEDICATIONS: Pls see below DISCHARGE INSTRUCTIONS: HOSPICE REFERRAL, pt wants to continue lasix for comfort, and is open to DISCUSSING DIGITAL CONTENT COORDINATOR. CARDIAC REHAB until pt decides on comfort measures only 2LITER FLUID RESTRICTION DASH DIET FU W PCP WITHIN 5 DAYS OF DISCHARGE HISTORY OF PRESENTINT ILLNESS: The patient is a 68-year-old male with a past medical history significant for systolic congestive heart failure (CHF) with ejection fraction of 20%, DO NOT RESUSCITATE, DO NOT INTUBATE, does not follow with a roll plugger machine operator and has refused further evaluation and defibrillator or biventricular pacer placement. He has schizoaffective disorder, antisocial behavior, suspected narcissistic personality disorder with multiple admissions to inpatient mental health unit for agitation, as well as being sexually preoccupied and inappropriate and previously incarcerated for rape in the past, hypertension, coronary artery disease, [id number] diabetes mellitus, chronic obstructive pulmonary disease (COPD), glaucoma, legally blind, dyslipidemia, benign prostatic hypertrophy (BPH), eczema, anxiety, depression, macular degeneration, who presents to the emergency room with several day history of worsening shortness of breath, worsened in the past 24 hours with inability to ambulate due to dyspnea. The patient denies any chest pain, pressure or tightness. No fever or chills. Has had a dry cough. No sick contacts. The patient denies nausea or vomiting, dysuria, urgency, frequency, chills or flank pain. Denies bright red blood per rectum, melena, hematemesis, black/tarry stools at home. The patient lives alone and realizes that he needs help. He has been noncompliant with hospital admissions, signing out against medical advice in the past, as well as not following up with his roll plugger machine operator and primary care provider appointments. In the emergency room, he was found to be in congestive heart failure (CHF). Chest x-ray shows bilateral pulmonary edema. Electrocardiogram (EKG) was unchanged showing an abnormal EKG with sinus bradycardia, rate of 58, left atrial enlargement, poor R wave progression and chronic left bundle branch block. Hospitalist was called to admit. The patient was initially agreeable to staying in the hospital for heart failure management. Upon admission interview, the patient has decided to leave against medical advice and when licensed social worker was contacted, the patient had mentioned that he was suicidal, he would go home and use a rope to tie around his neck and kill himself with suicidal thoughts of lying down on a railroad track and have the train kill him. The patient initially had mental capacity and was able to sign himself out against medical advice, he says that if he were to have more trouble breathing that he would come into the emergency room and he will take his medications as the pharmacy is able to put his medications under different packaging so he can tell which medication is which. The patient was asking for social work to help with home services, as well as assisted living if possible. He was very explicit about how he would seek help in case his breathing worsened. He also mentioned that should he naturally that he would not want to be resuscitated and did not want any cardiopulmonary resuscitation (CPR), chest compressions, defibrillation, and that he would not want to be intubated and placed on ventilation. He states that he has no family, no children, no , no relatives in the area and that he has one friend who has schizophrenia that he does not trust to make medical decisions for him. Currently, the patient does not have a healthcare proxy, and since making suicidal statements, he is now held against his will to be admitted into the hospital.The patient is noncompliant with his medications, medical treatments, does not keep an eye on his salt intake, usually eats out. He complains of paroxysmal nocturnal dyspnea, orthopnea, unable to sleep lying down and with 2 to 3 feet dyspnea on exertion. He does not weigh himself and is not aware of what his baseline dry weight is. HOSPITAL COURSE: Acute systolic congestive heart failure (CHF) with ejection fraction of 20%. The patient is refusing further workup. Cardiology referral as well as cardiology management of his acute issues. He is refusing evaluation for a defibrillator and biventricular pacer to improve his cardiac output. He was not agreeable to staying for congestive heart failure (CHF) management and was adamant about leaving against medical advice until he made suicidal statements, at which point he is now held against his will and legally kept in the hospital. Psychiatrist has been consulted. He is currently kept on strict input and output, daily weights, fluid restriction of 2 liters, Lasix 200 mg IV every 4 hours. KANG inhibitors and beta blockers will be restarted once he is euvolemic. Trigger is medical and dietary noncompliance, as well as possible infection in the left basal area with pneumonia. Pt's sob has resolved. He remains in net negative balance and says, "I want lasix to help me breathe, but that's all." Tele: NSVT. with his RN Katelyn at the bedside, pt signed DNR/DNI. He refuses to see a roll plugger machine operator for CHF, be evaluated for AICD/Biventricular pacer, and just "want to go home and live in my own terms." Pt says, "I said I have a rope to the licensed social worker in the ER," and then "she told you I want to hang myself." "I was being flippant. I was being facetious." He is agreeable to DIGITAL CONTENT COORDINATOR and hospice that can provide 24/7 care. Community acquired left lower lobe pneumonia. The patient will be given ceftriaxone for now, as well as sputum culture will be obtained, urine legionella, and blood cultures if the patient will permit us to take extra blood. We will check urine for legionella and urine strep antigen. History of coronary artery disease, status post coronary artery bypass graft (CABG) in the past. The patient does not want to follow with a roll plugger machine operator, refusing cardiology referral, does not want to be evaluated further for a defibrillator or biventricular pacer due to severe systolic dysfunction. He is currently of sound mind and is able to state the complications of not following medical advise. We will resume the patient's aspirin and metoprolol with holding parameters. KANG inhibitor to be started once the patient is euvolemic and blood pressure permits. Continue on isosorbide. Hypertension. Continue on isosorbide and metoprolol. Hyperlipidemia. Continue on atorvastatin. History of cataract surgery and history of macular degeneration. Continue with home eye drops. Type 2 diabetes. Hold the patient 's metformin in light of acute decompensated CHF. Sliding scale with consistent carbohydrate diet. Deep vein thrombosis (DVT) prophylaxis with Lovenox. CODE STATUS: The patient is DO NOT RESUSCITATE, DO NOT INTUBATE. He does not have a healthcare proxy and patient and family services (PFS) has been consulted. CLARIFICATION OF CODE STATUS: DO NOT RESUSCITATE, DO NOT INTUBATE. Patient understands that his medical condition of Advanced SYSTOLIC CHF with EF 20% is terminal without AICD/biventricular pacer, but wants treatment for this in the form of temporizing measures like lasix so "I can feel better, and go home." He is willing to take oral lasix at home to keep his symptoms at bay, but does now want a referral to a roll plugger machine operator, be sent to [place] of AICD evaluation. He wanted to go home against medical advice because he does not want to stay in the hospital. He wanted to return to the ER if the symptoms were persistent at home. He requested PFS to discuss options with him as he knows he cannot be alone much longer, and requiring more and more assistance as his eyesight worsens. He wants to be treated for his medical conditions up to the point of AICD, biventricular pacer, and cardiology mgt of his CHF. However, due to SEVERE DEPRESSION from knowing that he has ADVANCED CHF that is terminal without an AICD, and impending blindness from his glaucoma, He told the ER licensed social worker,"sometimes when I see the railroad tracks, I just want to lie there and be run over by a train." and more disturbingly, "I have rope at home that I can hang myself with." He has therefore, been held against his will, due to SUICIDALITY due to severe depression from his chronic terminal advanced CHF. Assessment: Mental capacity: -Pt exhibited the ability to recognize the pros and cons of treatment for CHF. -"I will take the pills to make my breathing better." -" My pharmacist puts different pills in different packages so I know which medicine is which." -" I want to talk to a licensed social worker to see how I can get help at home. " -"My phone doesn't work sometimes, so I am okay with someone knocking at my door and checking up on me. " -"I need help and I want to know what options there are for me,but I don't want to stay in the hospital overnight. Just send someone to my house." -"I'll come back if the pills don't help and I can't breathe again. I just don't want to stay in the hospital for days." -Despite his poor judgement of refusing acute inpatient care for decompensated CHF: (1)a referral to a roll plugger machine operator for acute inpatient management, (2)Defibrillator vest at hospital discharge, (3) AICD/Biventricular pacer evaluation in [place], (4) and 3 month cardiology medical optimization of his CHF,prior to AICD / BiV pacer placement which are the definitive treatments for his advanced systolic CHF . he shows understanding that he will have recurrent symptoms of CHF, can from VFIB if he does NOT have an AICD or defibrillator vest because "this is me. I decide what we do." Severe Depression: -in the setting of a terminal condition of advanced CHF EF 20% AND risk of sudden due to VFIB,VTACH. -despite Suicidal ideation, pt was ADAMANT that if he were to pass naturally and his heart stops, He does NOT want chest compressions, "electricity" Defibrillation, or "don't put me on a machine" intubation with mechanical ventilation. -Psychiatrist consulted Suicidal Ideation/Plan: -He is held against his will because he suffers from severe depression stemming from his understanding of his terminal advanced CHF. -He is in danger of harming himself by making these statements. -Psychiatrist Dr. Quan has been consulted. Terminal Advanced CHF EF 20% -"This is me. I decide what we do." -Pt has asked for options for him as he knows he cannot live alone anymore. -He adamantly refuses to go to his doctors, have a cardiology referral, or "any operations." -He is appropriate for DIGITAL CONTENT COORDINATOR once he is cleared of his suicidality. -Without an AICD/Biventricular pacer, strict compliance with a roll plugger machine operator, his SEVERE CHF is terminal due to risk of Vtach/VFib/Sudden . CODE STATUS: Patient is to be treated medically for all acute medical conditions up to the point when his heart stops or he stops breathing. He is ADAMANTLY opposed to pursuing AICD placement,cardiology referral and mgt of his advanced heart condition. DNR/DNI will only take effect once he has no heart beat or no spontaneous breathing. DISCHARGE PHYSICAL EXAMINATION: VITAL SIGNS: PLS SEE BELOW GENERAL: The patient is very agitated about being held due to suicidal statements. He appears older than his stated age. He is legally blind. He has some exudates noted in bilateral eyes. Pupils are reactive. Positive jugular venous distention (JVD). No thyromegaly. No cervical lymphadenopathy. HEART: S1, S2. Sinus rhythm with bradycardic episodes. S3 is noted with hyperdynamic impulse in the apex, as well as early systolic murmur noted in the left sternal border. LUNGS: Diminished breath sounds with rales at the left base. ABDOMEN: Soft, nontender, nondistended. Positive bowel sounds. No rebound or guarding. No splenomegaly. EXTREMITIES: No cyanosis or clubbing. Positive pitting edema. LAB DATA, IMAGING: PLS SEE BELOW TIME SPENT ON DISCHARGE: 1 HR Vital Signs/I&Os Vital Signs Date Time Temp Pulse Resp B/P (MAP) Pulse Ox O2 Delivery O2 Flow Rate FiO2 11/12/18 04:00 98.0 80 18 135/74 (94) 94 11/12/18 04:00 2.0 11/10/18 15:23 Room Air I&O- Last 24 Hours up to 6 AM 11/12/18 06:00 Intake Total 1990 ml Output Total 3960 ml Balance -1970 ml Laboratory Data Labs 24H Laboratory Tests 2 11/11/18 11:49: Total Creatine Kinase 57, Creatine Kinase MB 1.0, Creatine Kinase MB Relative Index 1.75, Troponin I 0.03 11/11/18 12:18: Bedside Glucose (Misc Panel) 142H 11/11/18 17:52: Anion Gap 6L, Glomerular Filtration Rate > 60.0, Blood Urea Nitrogen 18, Creatinine 0.91, Sodium Level 140, Potassium Level 4.0, Chloride Level 105, Carbon Dioxide Level 29, Calcium Level 7.8L, Magnesium Level 2.0 11/12/18 04:41: Anion Gap 5L, Glomerular Filtration Rate > 60.0, Blood Urea Nitrogen 17, Creatinine 0.83, Sodium Level 142, Potassium Level 4.1, Chloride Level 105, Carbon Dioxide Level 32, Calcium Level 8.3L, Magnesium Level 1.9, Immature Granulocyte % (Auto) 0.1, White Blood Count 7.0, Red Blood Count 4.18L, Hemoglobin 9.7L, Hematocrit 31.2L, Mean Corpuscular Volume 74.6L, Mean Corpuscular Hemoglobin 23.2L, Mean Corpuscular Hemoglobin Concent 31.1L, Red Cell Distribution Width 16.0H, Platelet Count 171, Neutrophils (%) (Auto) 68.1H, Lymphocytes (%) (Auto) 13.2L, Monocytes (%) (Auto) 11.1H, Eosinophils (%) (Auto) 7.2H, Basophils (%) (Auto) 0.3, Neutrophils # (Auto) 4.7, Lymphocytes # (Auto) 0.9L, Monocytes # (Auto) 0.8, Eosinophils # (Auto) 0.5, Basophils # (Auto) 0.0, Nucleated Red Blood Cells % (auto) 0.0 CBC/BMP Laboratory Tests 11/11/18 17:52 Calcium Level 7.8 L 11/12/18 04:41 Calcium Level 8.3 L, Red Blood Count 4.18 L, Mean Corpuscular Volume 74.6 L, Mean Corpuscular Hemoglobin 23.2 L, Mean Corpuscular Hemoglobin Concent 31.1 L, Red Cell Distribution Width 16.0 H, Neutrophils (%) (Auto) 68.1 H, Lymphocytes (%) (Auto) 13.2 L, Monocytes (%) (Auto) 11.1 H, Eosinophils (%) (Auto) 7.2 H, Basophils (%) (Auto) 0.3, Neutrophils # (Auto) 4.7, Lymphocytes # (Auto) 0.9 L, Monocytes # (Auto) 0.8, Eosinophils # (Auto) 0.5, Basophils # (Auto) 0.0 FSBS Laboratory Tests Test 11/11/18 12:18 Range/Units Bedside Glucose (Misc Panel) 142 83-110 MG/DL Discharge Medications Scheduled Aspirin (Aspirin 81) 81 Mg Tab, 81 MG PO DAILY, (Reported) Atorvastatin Calcium (Atorvastatin Calcium) 80 Mg Tab, 80 MG PO DAILY, (Reported) Bacillus Coagulans (Bacid) 1 Cap Cap, 1 CAP PO AC Brimonidine Tartrate 0.1% (Alphagan P) 100 Drop/5 Ml Soln, 1 DROP OS QHS, (Reported) Cefdinir (Cefdinir) 300 Mg Cap, 300 MG PO BID Furosemide (Lasix) 40 Mg Tab, 40 MG PO DAILY Gabapentin (Gabapentin) 300 Mg Cap, 300 MG PO DAILY, (Reported) Isosorbide Mononitrate (Isosorbide Mononitrate ER) 30 Mg Tab, 30 MG PO DAILY, (Reported) Lisinopril (Lisinopril) 5 Mg Tab, 5 MG PO DAILY, (Reported) Meloxicam (Meloxicam) 15 Mg Tab, 15 MG PO DAILY, (Reported) Metoprolol Succinate (Metoprolol Succinate ER) 100 Mg Tab, 100 MG PO BID, (Reported) Timolol Base (Betimol) 0.25 % Sudha, 1 DROP OS QHS, (Reported) Scheduled PRN Albuterol Sulfate (Proair Hfa) 108 Mcg/Act Aer, 2 PUFF INH Q4H PRN for WHEEZING, (Reported) Nitroglycerin (Nitroglycerin) 0.4 Mg Sub, 0.4 MG SL NITRO PRN for CHEST PAIN, (Reported) Allergies Coded Allergies: Haloperidol (Verified Allergy, Severe, airway swelling, 11/10/18) GURU BUTLER MD Nov 12, 2018 08:27
[2018-11-12] MEDS: ISOSORBIDE MON. (IMDUR) 30 MG XR TAB PO SCH (09:00)
[2018-11-12] MEDS ORDERED: LISINOPRIL 5 MG TAB PO SCH (09:00)
[2018-11-12] MEDS: METOPROLOL SUCC (TopROL XL) 100MG *XL* TAB PO SCH (09:00)
--- NOTE | 2018-11-12 11:44 | CR ---
DATE OF CONSULTATION: 11/11/2018 CHIEF COMPLAINT: Says feels frustrated. SUBJECTIVE: He is a 68 years old. Lives on his own, was apparently a [facility] resident sometime last year, has a history of schizoaffective disorder and some question regarding antisocial traits. He has had inpatient hospitalizations in psychiatry, over the last couple of years, in 2016, 2017, and most recently 2018 in February. Was seen by Dr. Henderson, who is summary is reviewed. His was diagnosed with schizoaffective disorder, and there is some question regarding antisocial versus narcissistic personality disorder. At that time, he was quite sexually preoccupied, intrusive as well and has a history of such behaviors in the past. I have been asked to see him by Dr. Mack, hospitalist, as the patient came in short of breath yesterday. He has several medical problems, which include congestive heart failure, ejection fraction of 20%, chronic obstructive pulmonary disease (COPD), diabetes mellitus, coronary artery disease, hypertension, glaucoma. He is deemed to be legally blind. He has dyslipidemia. Macular degeneration. He had been unable to ambulate due to the dyspnea, and lives alone and apparently realized that he needed help. He has been nonadherent to recommendations in the past, including signing out against medical advice, and has tended not to followup with his box storage worker nor primary care, sees Dr. Ortiz. When seen by Dr. Mack, she made an assessment, proposed treatments, including cardiology, to evaluate him for a defibrillator or a biventricular pacer, which he declined, wanted to stay for management of congestive heart failure, and then wanted to go home. Dr. Mack called me at that time, and had indicated that he expressed an understanding of his current aliment, and the treatment recommended, and declined them. She felt he had the ability to do so and she has detailed it quite well in her notes, and indicated that he would agree to assistance as long as he could get it home, including public health and that he would be okay with that, and that he would also come back to the hospital if he felt further unwell. However, apparently, she had asked a social group worker to see him and the patient had indicated that he was frustrated, and that he would tie a rope to hang himself with, or would lie on the railroad tracks or cross the road. In view of this, it was decided not to discharge him, and that he be assessed from a psychiatric standpoint. He says he had felt frustrated, and that it was "my big mouth" which lead him to stay here. He says he has no intentions of killing himself. Acknowledges making such statements, says did it out of frustration. Says he felt pain as well, particularly with the difficulty breathing but he feels much better today. He has also considered getting assistance for living arrangements, for example, an assisted living setup and public health to visit him. Says he does not have family or friends who could look after him. Says he does not wish for cardiology to see him or for him to go through those various procedures, says he is willing to see Dr. Ortiz as an outpatient, says he has seen him in the past. Denies any auditory or visual hallucinates. He denies that he has had thoughts of hurting himself. He says he sees Mr. Alex Levy for therapy at Dr. Arabella Velasquez ([facility]), psychotherapist in [facility]. Says he does not see a psychiatrist, says he was on Abilify Maintena which was given as an injection a couple of years ago, says it feels it "crippled me" but did not go into details. He is also Risperidone Consta, which was given at the time of his last hospitalization last year, but does not take any currently. He has attended a clinic in the past. Says he is willing to go again. According to the chart, he is currently on quetiapine at 50 mg at night. It should also be noted that he has refused some of his medications while here. PAST PSYCHIATRIC HISTORY: As indicated above, has had inpatient hospitalization, most recent one was last year. Has had irregular followup. Says he sees Mr. Levy for therapy. PAST MEDICAL HISTORY: Please see above, has several medical difficulties, including congestive heart failure, though he says he is breathing better today. SOCIAL HISTORY: He lives on his own, was at [facility] at some point last year. Has poor social support. MENTAL STATUS EXAMINATION: He is in hospital clothes, somewhat unkempt, has a tattoo on his abdomen. He is cooperative but somewhat reluctantly so, no agitation. No psychomotor retardation. He is lying in bed. I woke him up when I came in. He is coherent, there are no abnormal movements noted. He displays no agitation. Affect is restricted but reactive. He denies any suicidal thoughts or intents. He denies any homicidal ideas or intents. Does not appear to be internally preoccupied at present, no paranoid ideations elicited and currently, there is no fluctuation of consciousness, though I have just woken him up, he was able to maintain and shift attention quite well. He is alert and he is oriented to place and person, almost fully to time, he got the date right but thought it was Monday. Cognition is grossly intact. Judgment is fair to good as is insight. VITAL SIGNS: Blood pressure 144/74, pulse 79, temperature 98.6. ASSESSMENT: Schizoaffective disorder, bipolar type, current episode . Chronic obstructive pulmonary disease (COPD). Congestive heart failure. Poor social support. Nonadherence with treatment recommendations. He does not appear to be internally preoccupied, currently denies any suicidal thoughts or intents. No delusions are elicited at present, and he is not thought t be delirious either, he is alert, oriented to time, almost fully, and place and person. He does not wish for acute cardiac care at present, says he sees Dr. Ortiz, and prefers to see him as an outpatient. He sees Alex Levy for therapy at [facility], that is an outpatient facility and says plans to see Mr. Levy again. I would suggest that social work, perhaps confirm that he is seen there. Says he would have been home by now but that he said things, alluding to suicide, which was taken out of context, says he was expressing frustration and does not intent on harming himself. He is willing to accept assistance, public health and such agencies, and I would also suggest that adult protective services see him at home as well. He is also willing to consider assisted living. RECOMMENDATION: I would certainly continue with the quetiapine at 50 mg at night. Would suggest confirming that he is seen by Mr. Levy, and that he is referred to see him again, and also consider referral to outpatient psychiatry, says he has attended the clinic briefly in the past. He would probably benefit from assisted living, and he is willing to consider that. He does not, at this point, require inpatient psychiatric hospitalization. Even if he is to go against medical advice, I would suggest setting him up with services as discussed above, including pubic health, cardiology, and adult protective services. Thank you for the consultation. If you have any questions, please call. The assessment took 30 minutes.
[2018-11-12] MEDS ORDERED: QUET5TAB PO (12:10)
[2018-11-12] MEDS ORDERED: ALPR0.5T3 PO (12:10)
[2018-11-12] MEDS: ATORVASTATIN 20 MG TAB PO SCH (13:32)
[2018-11-12] MEDS: ASPIRIN 81 MG ENTERIC TAB PO SCH (13:33)
[2018-11-12] MEDS: MELOXICAM (MOBIC) 7.5 MG TAB PO SCH (13:33)
== END 2018-11-12 14:53 | disposition home health service (06) | DRG 291 ==
LOC: M ED 05:04 → M ED INP 09:14 → M PCU 18:35
PROVIDERS: ADMIT General Practice; ATTEND General Practice
DX: I11.0 Hypertensive heart disease with heart failure (principal); J18.9 Pneumonia, unspecified organism; I50.23 Acute on chronic systolic (congestive) heart failure; F25.0 Schizoaffective disorder, bipolar type; F60.2 Antisocial personality disorder; F60.81 Narcissistic personality disorder; I25.10 Atherosclerotic heart disease of native coronary artery without angina pectoris; E11.9 Type 2 diabetes mellitus without complications; J44.9 Chronic obstructive pulmonary disease, unspecified; H40.9 Unspecified glaucoma; Z66 Do not resuscitate; H54.8 Legal blindness, as defined in USA; N52.9 Male erectile dysfunction, unspecified; F32.9 Major depressive disorder, single episode, unspecified; H35.30 Unspecified macular degeneration; N40.0 Benign prostatic hyperplasia without lower urinary tract symptoms; E78.5 Hyperlipidemia, unspecified; L30.9 Dermatitis, unspecified; Z91.14 Patient's other noncompliance with medication regimen; Z91.19 Patient's noncompliance with other medical treatment and regimen; Z98.49 Cataract extraction status, unspecified eye; Z95.1 Presence of aortocoronary bypass graft; Z79.82 Long term (current) use of aspirin; Z79.899 Other long term (current) drug therapy; Z79.84 Long term (current) use of oral hypoglycemic drugs; Z88.8 Allergy status to other drugs, medicaments and biological substances

== ENCOUNTER 2023-11-19 14:50 | Emergency (ER) | payer MEDICARE, MEDICAID ==
[~2023-11-19] VITALS: Ht 182.9 cm; Wt 72.2 kg
[~2023-11-19 14:50] MED LIST changes: +ALPR0.5T3 PO; -ASPI1TAB PO; +ASPI81TA26 PO; -AZIT500T2 PO; +AZIT500T5 PO; +BACI1CAP PO; -BETI1SOL OS; +CEFD1CAP9 PO; +GABA-282; +GABA-282 PO; -GABA-843; +HYDR1TAB33 PO; -HYDRO50TAB PO; +ISOS1TAB35 PO; -ISOS30TA4 PO; +KETO0.5S2 OS; -KETO5OPD OS; +LASI40TA9 PO; -LISI-542 PO; +LISI10TA22 PO; -LISI10TA4 PO; +LISI5TAB11 PO; +LORA2TAB14 PO; -LORA2TAB9 PO; -MOME0.1O TOP; +MOME0.1O3 TOP; +PROAAER10 INH; +QUET50TA4 PO; +TIMO0.5S20 OS; -TIMO0.5S29 OS; +TIMO5DRO5 OS; -TRAZ-160 PO; +TRAZ-252 PO; +TRAZ1TAB10 PO; -TRAZO50TA PO
[2023-11-19 15:10] LABS: EOS % 13.5 % (0.0-3.0); HEMATOCRIT 32.8 % (42.0-52.0); HEMOGLOBIN 10.2 g/dl (13.5-17.5); LYMPH % 11.2 % (24.0-44.0); MEAN CORPUSCULAR HEMOGLOBIN 24.3 pg (27.0-33.0); MEAN CORPUSCULAR HGB CONC 31.1 g/dl (32.0-36.5); MEAN CORPUSCULAR VOLUME 78.3 fl (80.0-96.0); NEUTROPHILS % 68.3 % (36.0-66.0); PLATELET COUNT, AUTOMATED 249 10^3/uL (150-450); RED BLOOD COUNT 4.19 10^6/uL (4.30-6.10); WHITE BLOOD COUNT 11.8 10^3/uL (4.0-10.0)
[2023-11-19 15:11] LABS: BASO # 0.1 10^3/uL (0.0-0.2); BASO % 0.7 % (0.0-1.0); EOS # 1.6 10^3/uL (0.0-0.5); LYMPH # 1.3 10^3/uL (1.5-5.0); MONO # 0.7 10^3/uL (0.0-0.8)
[2023-11-19] MEDS: AZITHROMYCIN INJ 500 MG, VIAL MATE ADAPTER 1 EACH in NS 250 ML IV ONE (15:20)
[2023-11-19] MEDS: IPRATROPIUM 0.5MG/ALBUTEROL 2.5MG INH SOL UD 3ML (DUONEB) NEB ONE (15:26)
[2023-11-19 15:40] LABS: ALBUMIN 2.5 G/DL (3.2-5.2); ALKALINE PHOSPHATASE 119 U/L (46-116); ALT/SGPT 20 U/L (7.0-40); AST/SGOT 26 U/L (<34); BILIRUBIN,DIRECT 0.2 MG/DL (<0.4); BILIRUBIN,TOTAL 0.4 MG/DL (0.3-1.2); BLOOD UREA NITROGEN 23 MG/DL (9-23); CALCIUM LEVEL 8.4 MG/DL (8.3-10.6); CARBON DIOXIDE LEVEL 26 MMOL/L (20-31); CHLORIDE LEVEL 107 MMOL/L (98-107); CK-MB VALUE MASS 1.1 NG/ML (<3.6); CPK CREATINE PHOSPHOKINASE 64 U/L (46-171); CREATININE FOR GFR 1.07 MG/DL (0.70-1.30); GLOMERULAR FILTRATION RATE > 60.0 (>42); GLUCOSE, FASTING 80 MG/DL (74-106); MB/CK RELATIVE INDEX 1.71 (< OR =4); POTASSIUM SERUM 4.4 MMOL/L (3.5-5.1); SODIUM LEVEL 138 MMOL/L (136-145); TOTAL PROTEIN 5.6 G/DL (5.7-8.2)
[2023-11-19 15:42] LABS: THYROID STIMULATING HORMONE 2.025 uIU/ML (0.55-4.78)
[2023-11-19] MEDS: cefTRIAXone SOD 1 GM in D5W MINI-BAG PLUS 50 ML IV ONE (15:50)
[2023-11-19 16:06] LABS: VENOUS BASE EXCESS -1.6 (-2.0-2.0); VENOUS HCO3 22.9 MMOL/L (23.0-27.0); VENOUS O2 SATURATION 29.1 % (60.0-80.0); VENOUS PARTIAL PRESSURE CO2 37.9 mmHg (38.0-50.0); VENOUS PARTIAL PRESSURE O2 19.6 mmHg (30.0-50.0); VENOUS PH 7.399 UNITS (7.330-7.430); VENOUS STANDARD HCO3 21.9 MMOL/L; VENOUS TOTAL CO2 24.1 MMOL/L (24.0-28.0)
[2023-11-19] MEDS ORDERED: ISOVUE-370 76% 100ML VIAL As Ordered ONE (16:34)
[2023-11-19] MEDS: guaiFENesin/CODEINE SYRUP 5 ML UDC PO ONE (17:33)
[2023-11-19] MEDS ORDERED: AZIT500T5 PO (18:37)
[2023-11-19] MEDS ORDERED: ALBU8.5H INH (18:37)
[2023-11-19] MEDS ORDERED: GUAI1SOL5 PO (18:37)
[2023-11-19 19:22] VITALS: BP 111/64; TEMP 97.4; O2SAT 96
== END 2023-11-19 19:24 | disposition home or self-care (01) ==
LOC: M ED 14:50 → EDBD 14:50 → M ED 19:24
DX: J18.9 Pneumonia, unspecified organism (principal); R06.02 Shortness of breath; I50.22 Chronic systolic (congestive) heart failure; I25.2 Old myocardial infarction; E11.9 Type 2 diabetes mellitus without complications; I11.0 Hypertensive heart disease with heart failure; E78.5 Hyperlipidemia, unspecified; J44.9 Chronic obstructive pulmonary disease, unspecified; F41.9 Anxiety disorder, unspecified; F17.210 Nicotine dependence, cigarettes, uncomplicated; Z88.8 Allergy status to other drugs, medicaments and biological substances
CPT/HCPCS: 71045; 71275; 80048; 80076; 82550; 82553; 82803; 83605; 83880; 84443; 84484; 85025; 85379; 87040; 87486; 87581; 87633; 87798; 93005; 93041; 94640; 94760; 96365; 96366; 99285; J0456; J0696; Q9967

== ENCOUNTER 2023-11-28 09:41 | Emergency (ER) | payer MEDICARE, MEDICAID ==
[~2023-11-28] VITALS: Ht 182.9 cm; Wt 69.3 kg
[~2023-11-28 09:41] MED LIST changes: +ALBU8.5H INH; +GUAI1SOL5 PO
[2023-11-28 12:38] LABS: BASO # 0.1 10^3/uL (0.0-0.2); BASO % 0.5 % (0.0-1.0); EOS # 0.2 10^3/uL (0.0-0.5); EOS % 2.2 % (0.0-3.0); HEMATOCRIT 36.2 % (42.0-52.0); HEMOGLOBIN 11.1 g/dl (13.5-17.5); LYMPH # 0.8 10^3/uL (1.5-5.0); LYMPH % 7.3 % (24.0-44.0); MEAN CORPUSCULAR HEMOGLOBIN 24.2 pg (27.0-33.0); MEAN CORPUSCULAR HGB CONC 30.7 g/dl (32.0-36.5); MONO # 0.6 10^3/uL (0.0-0.8); NEUTROPHILS # 9.2 10^3/uL (1.5-8.5); NEUTROPHILS % 84.6 % (36.0-66.0); PLATELET COUNT, AUTOMATED 302 10^3/uL (150-450); RED BLOOD COUNT 4.58 10^6/uL (4.30-6.10); WHITE BLOOD COUNT 10.9 10^3/uL (4.0-10.0)
[2023-11-28 12:59] LABS: ALBUMIN 2.7 G/DL (3.2-5.2); BILIRUBIN,DIRECT 0.2 MG/DL (<0.4); BILIRUBIN,TOTAL 0.4 MG/DL (0.3-1.2); TOTAL PROTEIN 6.2 G/DL (5.7-8.2)
[2023-11-28] MEDS ORDERED: TRIA1CR80 TOP (14:27)
[2023-11-28 14:37] VITALS: BP 116/87; TEMP 97.3; O2SAT 98
== END 2023-11-28 15:12 | disposition left against medical advice (07) ==
LOC: EDBD 09:41 → M ED 10:16
DX: Z20.7 Contact with and (suspected) exposure to pediculosis, acariasis and other infestations (principal); I50.22 Chronic systolic (congestive) heart failure; I25.2 Old myocardial infarction; E11.9 Type 2 diabetes mellitus without complications; J44.9 Chronic obstructive pulmonary disease, unspecified; F17.210 Nicotine dependence, cigarettes, uncomplicated; Z53.9 Procedure and treatment not carried out, unspecified reason